=== PATIENT | female | born 1950 | race Caucasian/White ===

== ENCOUNTER → 2018-05-21 09:47 | Outpatient (CLI) | payer MEDICARE, OTHER, SELFPAY ==
[2018-05-21 12:05] LABS: Add Manual Diff / Slide Review NO; Basophils Percent Auto 1.4 % (0-2); Eosinophils Percent Auto 3.1 % (2-4); Hematocrit 41.9 % (36-46); Hemoglobin 13.9 g/dL (12.0-16.0); Lymphocytes Percent Auto 25.8 % (25-40); Mean Corpuscular HGB Conc 33.2 % (30-36); Mean Corpuscular Hemoglobin 30.1 PG (26-34); Mean Corpuscular Volume 90.7 fL (80-100); Monocytes Percent Auto 8.9 % (3-14); Neutrophils Absolute Auto 3000 /uL (3000-5900); Neutrophils Percent Auto 60.8 % (50-75); Platelet Count 275 X10^3/uL (150-400); Red Blood Cell Count 4.62 X10^6/uL (4.0-5.2); Red Cell Distribution Width 12.8 % (11.6-14.8)
[2018-05-21 12:49] LABS: Alanine Aminotransferase 24 IU/L (9-52); Albumin 4.8 g/dL (3.5-5.0); Albumin Globulin Ratio 1.4 (1.0-2.8); Alkaline Phosphatase 73 U/L (38-126); Aspartate Aminotransferase 29 IU/L (14-36); BUN Creatinine Ratio 15.7 (6-22); Bilirubin Total 0.6 mg/dL (0.2-1.3); Blood Urea Nitrogen 11 mg/dL (7-17); Carbon Dioxide 29 mmol/L (22-32); Chloride 100 mmol/L (98-107); Cholesterol 289 mg/dL (140-199); Estimated Glomerular Filt Rate > 60.0 mL/min (>60); Globulin 3.5 g/dL (1.7-4.1); Glucose 84 mg/dL (80-110); HDL Cholesterol 86 mg/dL (40-60); HEMOLYSIS < 15 (0-50); LDL Cholesterol Calculated 177 mg/dL (<100); Potassium 4.2 mmol/L (3.4-5.1); Sodium 141 mmol/L (137-145); Total Protein 8.3 g/dL (6.3-8.2); Triglycerides 130 mg/dL (35-150)
== END ==
PROVIDERS: PCP Family Medicine; Visit Provider Family Medicine
DX: I10 Essential (primary) hypertension (principal)
CPT/HCPCS: 36415; 80053; 80061; 84443; 85025

== ENCOUNTER → 2018-06-03 12:12 | Outpatient (CLI) | payer MEDICARE, OTHER, SELFPAY ==
--- NOTE | 2018-06-03 12:16 | DI.MG.S_ITS ---
BILATERAL DIGITAL SCREENING MAMMOGRAM 3D/2D WITH CAD: 06/03/2018 CLINICAL: Routine screening. Routine screening. Comparison is made to exams dated: 06/06/2016 mammogram - [facility], 11/22/2014 mammogram, and 11/08/2014 mammogram - [facility]. There are scattered fibroglandular elements in both breasts. Current study was also evaluated with a Computer Aided Detection (CAD) system. No significant masses, calcifications, or other findings are seen in either breast. There has been no significant interval change. IMPRESSION: NEGATIVE There is no mammographic evidence of malignancy. A 1 year screening mammogram is recommended. This exam was interpreted at Station ID: [id number]. NOTE: For mammograms, a report in lay terms will be sent to the patient. Approximately 15% of breast malignancies will not be visualized mammographically. In the management of a palpable breast mass, a negative mammogram must not discourage biopsy of a clinically suspicious lesion. Electronically Signed By: Gayatri blake/vonda:06/03/2018 15:18:35 letter sent: Normal Exam ACR BI-RADS Category 1: Negative 3341F
== END ==
PROVIDERS: Visit Provider Family Medicine
DX: Z12.31 Encounter for screening mammogram for malignant neoplasm of breast (principal)
CPT/HCPCS: 77063; 77067

== ENCOUNTER → 2018-10-15 12:00 | Outpatient (CLI) | payer MEDICARE, OTHER, SELFPAY | PROVIDERS: PCP Family Medicine; Visit Provider Physician Assistant | DX: N30.91 Cystitis, unspecified with hematuria (principal) | CPT/HCPCS: 87077; 87086; 87186 ==

== ENCOUNTER → 2018-11-11 12:18 | Outpatient (CLI) | payer MEDICARE, OTHER, SELFPAY ==
[2018-11-11 13:50] LABS: Appearance Urine UA CLEAR; Bilirubin Urine UA NEGATIVE (NEGATIVE); Color Urine UA YELLOW; Glucose Urine UA NEGATIVE (Normal); Ketones Urine UA NEGATIVE (NEGATIVE); Leukocyte Esterase Urine UA 1+ (NEGATIVE); Nitrite Urine UA NEGATIVE (Negative); Occult Blood Urine UA TRACE-INTACT (Negative); Protein Urine UA NEGATIVE (Negative); Specific Gravity Urine UA <=1.005 (1.000-1.035); Urobilinogen Urine UA 0.2 E.U./dL (0.2); pH Urine UA 5.5 (4.5-8.0)
[2018-11-11 14:08] LABS: Bacteria Urine Many (>30); RBC Urine 0-1/HPF (0-5/HPF); Squamous Epithelial Cell Urine 1-5 /HPF; WBC Urine 5-10/HPF (0-5/HPF)
[2018-11-11 14:09] LABS: Culture Indicated Urine Specimen Cultured
== END ==
PROVIDERS: PCP Family Medicine; Visit Provider Family Medicine
DX: R30.0 Dysuria (principal)
CPT/HCPCS: 81001; 87077; 87086; 87186

== ENCOUNTER → 2018-11-20 10:44 | Outpatient (CLI) | payer MEDICARE, OTHER, SELFPAY ==
[2018-11-20 10:48] LABS: Bacteria Urine None Seen
[2018-11-20 12:39] LABS: Appearance Urine UA CLEAR; Bilirubin Urine UA NEGATIVE (NEGATIVE); Color Urine UA YELLOW; Glucose Urine UA NEGATIVE (Normal); Ketones Urine UA NEGATIVE (NEGATIVE); Leukocyte Esterase Urine UA NEGATIVE (NEGATIVE); Nitrite Urine UA NEGATIVE (Negative); Occult Blood Urine UA TRACE-LYSED (Negative); Protein Urine UA NEGATIVE (Negative); Specific Gravity Urine UA 1.015 (1.000-1.035); Urobilinogen Urine UA 0.2 E.U./dL (0.2)
[2018-11-20 12:51] LABS: RBC Urine 0-1/HPF (0-5/HPF); Squamous Epithelial Cell Urine 1-5 /HPF; WBC Urine 0-1/HPF (0-5/HPF)
[2018-11-20 12:52] LABS: Culture Indicated Urine Cult Not Indicated
== END ==
PROVIDERS: PCP Family Medicine; Visit Provider Family Medicine
DX: R30.0 Dysuria (principal)
CPT/HCPCS: 81001

== ENCOUNTER → 2018-12-14 11:05 | Outpatient (CLI) | payer MEDICARE, OTHER, SELFPAY | PROVIDERS: PCP Family Medicine; Visit Provider Physician Assistant | DX: N39.0 Urinary tract infection, site not specified (principal) | CPT/HCPCS: 87086 ==

== ENCOUNTER → 2019-05-19 08:48 | Outpatient (CLI) | payer MEDICARE, OTHER, SELFPAY ==
[2019-05-19 10:45] LABS: Cholesterol 262 mg/dL (140-199); Glucose 82 mg/dL (80-110); HDL Cholesterol 77 mg/dL (40-60); LDL Cholesterol Calculated 154 mg/dL (<100); Triglycerides 153 mg/dL (35-150)
== END ==
PROVIDERS: PCP Family Medicine; Visit Provider Family Medicine
DX: E78.5 Hyperlipidemia, unspecified (principal); R89.9 Unspecified abnormal finding in specimens from other organs, systems and tissues; Z13.1 Encounter for screening for diabetes mellitus
CPT/HCPCS: 36415; 80061; 82947

== ENCOUNTER → 2019-09-11 08:52 | Outpatient (CLI) | payer MEDICARE, OTHER, SELFPAY | PROVIDERS: PCP Family Medicine; Visit Provider Obstetrics & Gynecology | DX: N39.0 Urinary tract infection, site not specified (principal) | CPT/HCPCS: 87086 ==

== ENCOUNTER → 2019-09-18 10:32 | Outpatient (CLI) | payer MEDICARE, OTHER, SELFPAY ==
[2019-09-18 12:51] LABS: Appearance Urine UA CLEAR; Bilirubin Urine UA NEGATIVE (NEGATIVE); Color Urine UA YELLOW; Glucose Urine UA NEGATIVE (Negative); Ketones Urine UA NEGATIVE (NEGATIVE); Leukocyte Esterase Urine UA 2+ (NEGATIVE); Nitrite Urine UA NEGATIVE (Negative); Occult Blood Urine UA TRACE-LYSED (Negative); Protein Urine UA NEGATIVE (Negative); Specific Gravity Urine UA <=1.005 (1.000-1.035); Urobilinogen Urine UA 0.2 E.U./dL (0.2)
[2019-09-18 12:53] LABS: pH Urine UA 6.5 (4.5-8.0)
[2019-09-18 13:01] LABS: Bacteria Urine Few (2-10); Culture Indicated Urine Specimen Cultured; RBC Urine 0-1/HPF (0-5/HPF); Squamous Epithelial Cell Urine 0-1 /HPF (0-5/HPF); WBC Urine 5-10/HPF (0-5/HPF)
== END ==
PROVIDERS: PCP Family Medicine; Visit Provider Obstetrics & Gynecology
DX: R30.0 Dysuria (principal)
CPT/HCPCS: 81001; 87077; 87086; 87186

== ENCOUNTER 2019-10-05 11:38 | Day surgery (SDC) | payer MEDICARE, OTHER, SELFPAY ==
[2019-09-29 08:10] VITALS: BMI 25.2
[2019-10-05] VITALS (16 sets, daily range): BP systolic 117–175; BP diastolic 66–86; PULSE 54–77; RESP 10–16; TEMP 36.4–36.9; O2SAT 94–100; BMI 24.4
[2019-10-05] MEDS: LACTATED RINGERS 1,000 ML 100 ML IV (13:01)
--- NOTE | 2019-10-05 13:04 | PM.PREOP ---
Pre-operative Note Interval Note History & Physical reviewed/Exam performed by Physician: Yes Changes to H&P: No
[2019-10-05 13:21] LABS: Add Manual Diff / Slide Review NO; Basophils Absolute Auto 100 /uL (0-100); Basophils Percent Auto 1.1 % (0-2); Eosinophils Absolute Auto 0 /uL (0-450); Eosinophils Percent Auto 0.9 % (2-4); Hematocrit 39.2 % (36-46); Hemoglobin 13.3 g/dL (12.0-16.0); Lymphocytes Absolute Auto 1200 /uL (1100-4500); Lymphocytes Percent Auto 22.2 % (25-40); Mean Corpuscular HGB Conc 34.1 % (30-36); Mean Corpuscular Hemoglobin 30.7 PG (26-34); Mean Corpuscular Volume 90.2 fL (80-100); Monocytes Absolute Auto 400 /uL (0-900); Monocytes Percent Auto 7.8 % (3-14); Neutrophils Absolute Auto 3700 /uL (1500-7000); Platelet Count 202 X10^3/uL (150-400); Red Blood Cell Count 4.34 X10^6/uL (4.0-5.2); Red Cell Distribution Width 12.9 % (11.6-14.8); White Blood Cell Count 5.4 X10^3/uL (4.5-11.0)
[2019-10-05] MEDS: CEFAZOLIN 2 GM/100 ML FROZ.PIGGY IV (14:20)
--- NOTE | 2019-10-05 14:41 | SUR.OPER ---
Lithotomy on padded OR bed, head on pillow, arms secured on padded arm boards at <90 degrees abduction. Legs secured in padded yellow fins stirrups.
[2019-10-05] MEDS: BUPIVACAINE 0.5% W/ EPI (PF) VIAL 30 ML INJ (14:48)
--- NOTE | 2019-10-05 15:24 | P.OP_ITS ---
Operative Date/Time/Diagnoses Date of procedure: 10/05/19 Time of procedure: 14:24 Pre-op diagnosis: Pelvic Organ Prolapse Post-op diagnosis: same Procedure & Clinicians Procedure: Procedures Operation Date: 10/05/19 14:45 Actual Procedures Side Surgeon p *OPB* Colporrhaphy Anterior Repair Jaquelin Hutchinson MD Indications: Pelvic organ prolapse Surgeon: Jaquelin Hutchinson Evaluation Analyst: Jasmin Valero Anesthesia Type: General Operative Notes Findings: Moderate cystocele, moderate apical descent. IVF: 1000ccs crystalloid UOP: NA EBL: Minimal Closure Type: primary Specimen(s): none Applied: catheter Estimated blood loss (mL): 5 Procedure in detail: After proper consent was obtained, the patient was taken to the operating room where general anesthesia was placed. She was placed in the dorsal lithotomy position and prepped and draped in the normal sterile fashion. A straight catheter was used to drain the bladder and removed, and 2 Allis clamps were used on the vaginal mucosa overlying the prolapse bladder to define the boundaries of the fascial defect. 10 cc of 0.5% Marcaine with epi were infiltrated into the vaginal mucosa to aid in hydrodilation of the vaginal wall from the bladder fascia. An incision was made between the Allis clamps of approximately 4 cm, and the vaginal mucosa dissected from the bladder fascia further using Metzenbaum scissors and blunt dissection. The defect in the fascia was visualized, and interrupted sutures of 2-0 Vicryl were used to reapproximate the fascia where necessary. Once good support of the bladder was obtained, the vaginal mucosa was reapproximated with 2-0 Vicryl in a running, locked fashion. Good hemostasis was noted. Mild to moderate apical descent remained, but further apical support now been discussed with the patient and was deferred to avoid causing dyspareunia and voiding dysfunction after healing. A Dobbins catheter was placed in the urethra, and vaginal packing placed in the vagina. The patient was removed from the dorsal lithotomy position and taken to the recovery room in stable condition. There were no products for pathology. Complications: none Post-operative Condition: stable Disposition: Acute Care Plan for aftercare: Routine postoperative care. Patient will have Dobbins catheter and vaginal packing in situ until tomorrow morning. Patient will use Ultram and Toradol for pain relief as previously discussed. Advance diet as tolerated, ambulation encouraged as tolerated.
[2019-10-05] MEDS: LACTATED RINGERS 1,000 ML 125 ML IV ×2 (16:50→23:27)
--- NOTE | 2019-10-05 17:24 | PC.NURSE ---
Addendum entered by Shanice Duran R.N. 10/05/19 22:37: Mahogany still denies pain, RENEWALS SPECIALIST assisted her to dangle legs at side of bed, pad underneath her changed. Hui-pad CDI, no bleeding observed. IS teaching done, she was able to get IS to 1800. Encouraged use qhour. VS are stable, RA oxygen high 90's. Pérez with 2150 ml output total last 8 hours, urine dilute yellow, drinking lots of H2o. Instructed to call nurse if any needs/concerns tonight. Original Note: Admit note: Mahogany brought from PACU via hospital bed, Ox3 and to situation. VS stable, last BP hypertensive, patient actively moving & talking while RENEWALS SPECIALIST taking her BP, I will recheck. She denies any pain. She is tolerating clear liquids, IV LR infusing at 125 ml/hour as ordered. RENEWALS SPECIALIST called kitchen to ask them to bring regular dinner which was ordered by the surgeon. Pérez patent with clear yellow output, vag packing. Per PACKAGE LIFT OPERATOR the Surgeon ordered to keep pérez & packing in place until she comes to DC these in the morning. Admission paperwork complete, spouse Eleuterio at bedside. Pt oriented to room, call button & instructed to call staff for any needs. Fall precautions in place.
--- NOTE | 2019-10-06 00:02 | PC.NURSE ---
Addendum entered by Ayala Roberson R.N. 10/06/19 03:16: Awake and requesting to go for walk. Ambulated around [facility] nurses station and back to room; tolerated without dizziness or lightheadedness. Denies pain. Original Note: Patient is alert and oriented. Breath sounds CTA with RA sat of 96%. HRR. Denies nausea. BT present and is passing flatus. Indwelling catheter is patent and urine is pale, light, yellow; MD plans to remove catheter in a.m. Is able to turn self in bed. Gait not assessed as has not yet been out of bed. No drainage noted on peripad. Wearing bilateral calf SCD's. Denies pain. Fall risk score is low.
[2019-10-06 05:49] LABS: Add Manual Diff / Slide Review NO; Basophils Absolute Auto 0 /uL (0-100); Basophils Percent Auto 0.4 % (0-2); Eosinophils Absolute Auto 0 /uL (0-450); Eosinophils Percent Auto 0.1 % (2-4); Hematocrit 33.9 % (36-46); Hemoglobin 11.7 g/dL (12.0-16.0); Lymphocytes Absolute Auto 1000 /uL (1100-4500); Lymphocytes Percent Auto 12.9 % (25-40); Mean Corpuscular HGB Conc 34.4 % (30-36); Mean Corpuscular Hemoglobin 30.9 PG (26-34); Mean Corpuscular Volume 89.8 fL (80-100); Monocytes Absolute Auto 600 /uL (0-900); Monocytes Percent Auto 7.9 % (3-14); Neutrophils Absolute Auto 6300 /uL (1500-7000); Neutrophils Percent Auto 78.7 % (50-75); Platelet Count 172 X10^3/uL (150-400); Red Blood Cell Count 3.77 X10^6/uL (4.0-5.2); Red Cell Distribution Width 12.7 % (11.6-14.8)
[2019-10-06 05:52] LABS: BUN Creatinine Ratio 15.7 (6-22); Blood Urea Nitrogen 11 mg/dL (7-17); Calcium 8.9 mg/dL (8.4-10.2); Carbon Dioxide 28 mmol/L (22-32); Chloride 102 mmol/L (98-107); Estimated Glomerular Filt Rate > 60.0 mL/min (>60); Glucose 114 mg/dL (80-110); HEMOLYSIS < 15 (0-50); Potassium 4.3 mmol/L (3.4-5.1); Sodium 134 mmol/L (137-145)
[2019-10-06 06:36] VITALS: BP 107/57; PULSE 48; RESP 15; TEMP 36.5; O2SAT 97
[2019-10-06 07:53] VITALS: BP 109/59; PULSE 48; RESP 16; TEMP 36.3; O2SAT 98
--- NOTE | 2019-10-06 08:02 | PM.PNPO.1 ---
Subjective Subjective Date Patient Seen: 10/06/19 Time Patient Seen: 07:48 Interval history: Patient reports feeling well this morning, denies pain, fevers, chills, shortness of breath, nausea, or any other complaints. Patient has been ambulating, has tolerated p.o. Exam Vital Signs (past 8 hours): - 10/06/19 06:36 10/06/19 07:53 Temperature 97.7 F 97.4 F L Pulse Rate 48 L 48 L Respiratory Rate 15 16 Blood Pressure 107/57 L 109/59 L Pulse Oximetry 97 98 Oxygen Delivery Method Room Air Oxygen Flow Rate 0 Resp Effort & Inspection: normal respiratory effort Auscultation: clear to auscultation bilaterally Cardio Rate: regular rate Rhythm: regular rhythm (Pulse rate audibly faster than 48, as recorded) GI Palpation: soft and No tender External Female Exam: external appearance normal Other: Vaginal packing removed, only mildly saturated. Patient tolerated removal well. Patient tolerated removal of Dobbins catheter well. Catheter bag approximately half full. Objective Labs Result Diagrams: 10/06/19 05:30 10/06/19 05:30 Labs: Laboratory Results - last 24 hr 10/05/19 10/05/19 10/06/19 13:05 13:05 05:30 WBC 5.4 8.0 RBC 4.34 3.77 L Hgb 13.3 11.7 L Hct 39.2 33.9 L MCV 90.2 89.8 MCH 30.7 30.9 MCHC 34.1 34.4 RDW 12.9 12.7 Plt Count 202 172 Neut % (Auto) 68.0 78.7 H Lymph % (Auto) 22.2 L 12.9 L Mcculloch % (Auto) 7.8 7.9 Eos % (Auto) 0.9 L 0.1 L Baso % (Auto) 1.1 0.4 Neut # (Auto) 3700 6300 Lymph # (Auto) 1200 1000 L Mcculloch # (Auto) 400 600 Eos # (Auto) 0 0 Baso # (Auto) 100 0 Sodium Potassium Chloride Carbon Dioxide BUN Creatinine Estimated GFR BUN/Creatinine Ratio Glucose Calcium Blood Type A Positive Antibody Screen Negative 10/06/19 05:30 WBC RBC Hgb Hct MCV MCH MCHC RDW Plt Count Neut % (Auto) Lymph % (Auto) Mcculloch % (Auto) Eos % (Auto) Baso % (Auto) Neut # (Auto) Lymph # (Auto) Mcculloch # (Auto) Eos # (Auto) Baso # (Auto) Sodium 134 L Potassium 4.3 Chloride 102 Carbon Dioxide 28 BUN 11 Creatinine 0.70 Estimated GFR > 60.0 BUN/Creatinine Ratio 15.7 Glucose 114 H Calcium 8.9 Blood Type Antibody Screen Assessment & Plan Post-op Postoperative Procedures: Procedures Operation Date: 10/05/19 14:45 Actual Procedures Side Surgeon p *OPB* Colporrhaphy Anterior Repair Jaquelin Hutchinson MD Postoperative day: 1 Postoperative status: doing well Postoperative status narrative: This patient is postoperative day 1 status post anterior repair for cystocele. Patient is recovering externally, and will be for discharge today after a voiding trial this a.m.. Patient is otherwise meeting postoperative goals. We discussed precautions for return, plan for follow-up in 1-2 weeks in clinic, pain medication, and expected recovery course. Patient vocalized understanding. Postoperative plan: routine post-op care Time Spent With Patient Time with patient: less than 15 minutes Quality VTE Deep Vein Thrombosis/Pulmonary Embolism Present on Admission: No
--- NOTE | 2019-10-06 09:06 | PC.NURSE ---
Addendum entered by Ro Doty R.N. 10/06/19 12:02: Discharge home: IV dc'd intact. Patient voided 300 ml clear yellow urine prior to leaving and denied any post-void urgency. Reviewed all d/c instructions with patient. No new scripts, no change to home meds. Patient verbalized understanding of instructions and stated no further questions. All personal belongings sent with patient at discharge. Wheeled out to private vehicle accompanied by this chief writer. Addendum entered by Ro Doty R.N. 10/06/19 10:03: Message left at the office for Dr Fellow re: void and PVR results, awaiting call back and/or remote entry of d/c orders. Original Note: Shift summary: Awake and alert, oriented X3. Denies pain. Has voided twice since her Dobbins was removed and states she feels like she emptied her bladder. PVR bladder scan showed 9 ml at the most. No vaginal bleeding noted or reported. Urine is yellow, with the very slightest pink tinge. Tolerating PO's well. Will alert MD about PVR amount, anticipate d/c orders based on conversation w/Dr Fellow earlier. Patient in bed, states no needs now. Call light within reach.
--- NOTE | 2019-10-06 11:40 | CM.DANOTE ---
DCP/Assessment: Reviewed chart. Patient admitted to [facility] for genital prolapse repair performed on 10-05-[address] Hutchinson. PCP is Dr. Solares. Primary payor is 1)Medicare 2)[employer]. Met with patient explained CM/SW role. Patient reports that she resides with spouse/Timmy in [place] Patient reports that she is completely I in all ADL's. Patient has has surgery on bilateral knees a few years ago. No identified d/c planning needs at t his time. P: Home today. BERTHA Veronica
== END 2019-10-06 12:05 | disposition home or self-care (01) ==
LOC: OR 11:47 → AC 10-06 07:01
PROVIDERS: PCP Family Medicine; Visit Provider Obstetrics & Gynecology
PROC: (CPT 57240; principal; 2019-10-05 14:45)
DX: N81.10 Cystocele, unspecified (principal); N81.9 Female genital prolapse, unspecified
CPT/HCPCS: 57240; 36415; 80048; 85025; 86850; 86900; 86901; 94762; J0690; J1100; J1885; J2405; J2704; J3010

== ENCOUNTER → 2019-11-30 12:54 | Outpatient (CLI) | payer MEDICARE, OTHER, SELFPAY ==
[2019-10-05 17:06] VITALS: BMI 24.4
[2019-11-30 13:51] LABS: Appearance Urine UA CLOUDY; Bilirubin Urine UA NEGATIVE (NEGATIVE); Color Urine UA YELLOW; Glucose Urine UA NEGATIVE (Negative); Ketones Urine UA NEGATIVE (NEGATIVE); Leukocyte Esterase Urine UA 2+ (NEGATIVE); Nitrite Urine UA NEGATIVE (Negative); Occult Blood Urine UA 1+ (Negative); Protein Urine UA NEGATIVE (Negative); Urobilinogen Urine UA 0.2 E.U./dL (0.2)
[2019-11-30 14:00] LABS: pH Urine UA 5.5 (4.5-8.0)
[2019-11-30 14:02] LABS: Bacteria Urine Moderate (10-30); Culture Indicated Urine Specimen Cultured; RBC Urine 5-10/HPF (0-5/HPF); WBC Urine >100/HPF (0-5/HPF)
== END ==
PROVIDERS: PCP Family Medicine; Visit Provider Obstetrics & Gynecology
DX: R30.9 Painful micturition, unspecified (principal); R39.89 Other symptoms and signs involving the genitourinary system
CPT/HCPCS: 81001; 87077; 87086; 87186

== ENCOUNTER 2020-04-24 09:05 | Emergency (ER) | payer MEDICARE, OTHER, SELFPAY ==
[2019-10-05 17:06] VITALS: BMI 24.4
[2020-04-24 09:08] VITALS: BP 209/91; PULSE 81; RESP 16; TEMP 36.5; O2SAT 99; BMI 25.0
--- NOTE | 2020-04-24 09:14 | ED.FEMALEGU ---
HPI - Female Genitourinary General Chief complaint: Urogenital-Female Stated complaint: bladder infection Time Seen by Provider: 04/24/20 09:07 Source: patient Mode of arrival: Ambulatory Limitations: no limitations History of Present Illness HPI Narrative: 69-year-old female nonsmoker with history of hypertension, hyperlipidemia and frequent UTIs with prior bladder surgery presents with a chief complaint of urinary urgency and a foul odor this morning. She denies any hematuria or dysuria. She denies any systemic symptoms such as fever, chills nor nausea, back pain or other. She is otherwise well and free of complaint. She is concerned that she has another urinary tract infection, as she has had many. She plans to travel to [place] and is afraid of doing so untreated. Patient denies any vaginal bleeding or discharge MD Complaint: UTI Onset (ago): hour(s) Severity: mild Exacerbating factors: urination Urinary symptoms: Foul Smelling Urine Patient : No Related Data Home Medications Medication Instructions Recorded Confirmed multivitamin 1 tab PO DAILY 05/21/18 11/20/19 omeprazole 20 mg capsule,delayed 20 mg PO BID cap 05/21/18 11/20/19 release Previous Rx's Medication Instructions Recorded pravastatin 10 mg tablet 10 mg PO DAILY #90 tab 12/02/19 cephalexin [Keflex] 500 mg PO QID 7 Days #28 cap 04/24/20 Allergies Allergy/AdvReac Type Severity Reaction Status Date / Time Calcium Channel Blocking Allergy Severe left side Verified 04/24/20 09:13 Agent Dilt of face, [CALCIUM CHANNEL BLOCKING removes AGENT DILT] calcium out of bones midazolam [From VERSED] Allergy Mild terminal makeup operator Verified 04/24/20 09:13 memory loss codeine [CODEINE] AdvReac Severe HALLUCINATI Verified 04/24/20 09:13 ONS diphenhydramine AdvReac Severe I'M Verified 04/24/20 09:13 [From BENADRYL] KNOCKED OUT FOR DAYS epinephrine [EPINEPHRINE] AdvReac Severe TREMORS, Verified 04/24/20 09:13 TACHYCARDIA Review of Systems Constitutional Constitutional: Denies chills, Denies fatigue, Denies fever(s), Denies frequent falls, Denies lethargy and Denies weakness Eyes Eyes: Denies change in vision, Denies eye discharge, Denies irritation and Denies loss of vision ENT Ears, Nose, Mouth, and Throat: Denies change in voice, Denies dizziness, Denies neck pain, Denies sore throat and Denies throat swelling Cardiovascular Cardiovascular: Denies chest pain, Denies irregular heart rhythm, Denies lightheadedness, Denies palpitations, Denies dyspnea, Denies dyspnea on exertion and Denies orthopnea Respiratory Respiratory: Denies cough, Denies dyspnea, Denies dyspnea on exertion and Denies wheezing Gastrointestinal Gastrointestinal: Denies abdominal pain, Denies change in bowel habits, Denies diarrhea, Denies nausea and Denies vomiting Genitourinary Genitourinary: Denies hematuria, Denies flank pain, Denies urinary incontinence and Reports urinary urgency Musculoskeletal Musculoskeletal: Denies back pain, Denies muscle weakness, Denies neck pain, Denies numbness and Denies tingling Integumentary/Breasts Skin/Breast: Denies pruritus, Denies erythema, Denies rash and Denies wounds Neurologic Neurologic: Denies behavioral changes, Denies confusion, Denies dizziness, Denies frequent falls, Denies loss of vision, Denies numbness, Denies tingling and Denies weakness Psychiatric Psychiatric: Denies anxiety, Denies behavioral changes, Denies confusion, Denies depression, Denies homicidal ideation and Denies suicidal ideation Endocrine Endocrine: Denies fatigue, Denies flushing and Denies palpitations Hematologic/Lymphatic Hematologic/Lymphatic: Denies easy bruising Allergic/Immunologic Allergic/Immunologic: Denies urticaria, Denies throat swelling and Denies wheezing Patient History Medical History Chicken pox (Resolved) Congenital cataract (Resolved) Cystocele (Acute) Osteoarthritis (Chronic) Osteopenia (Chronic 2014) Surgical History Anesthesia (Resolved) History of bilateral tubal ligation (Resolved) History of cataract removal with insertion of prosthetic lens (Resolved 2016) History of gynecologic surgery (Acute ~10/05/19) History of knee replacement (Resolved 11/22/15) History of knee replacement (Resolved 10/02/16) History of tonsillectomy (Resolved ~1960) Status post appendectomy (Resolved ~1964) Family History Father Heart disease High cholesterol Grandmother Age: 70 Heart disease Diabetes mellitus Brother Mental health problem Suicide Brother Diabetes mellitus Mother Pancreatic cancer Substance Use Type: does not use Exam Narrative Exam Narrative: GENERAL: [69] year old patient appears stated age. Well-nourished, well-developed patient, in mild distress. HEAD: Atraumatic. Normocephalic. EYES: Pupils equal round and reactive. Extraocular motions intact. No scleral icterus. No injection or drainage. ENT: Nose without bleeding, purulent drainage. Throat without erythema, tonsillar hypertrophy or exudate. Airway patent. NECK: Trachea midline. Non tender CARDIOVASCULAR: Regular rate and rhythm without murmurs, gallops, or rubs. RESPIRATORY: Clear to auscultation. Breath sounds equal bilaterally. No wheezes, rales, or rhonchi. GASTROINTESTINAL: Abdomen soft, non-tender, nondistended. EXTREMITIES: No edema or joint tenderness. BACK: Nontender without deformity or crepitance. No flank tenderness. NEURO: AOx3. SKIN: No rash or erythema of visible areas Initial Vital Signs Initial Vital Signs: Vital Signs Temperature 97.7 F 04/24/20 09:08 Pulse Rate 81 04/24/20 09:08 Respiratory Rate 16 04/24/20 09:08 Blood Pressure 209/91 H 04/24/20 09:08 Pulse Oximetry 99 04/24/20 09:08 Course Vital Signs Vital signs: Vital Signs - 8 hr 04/24/20 09:08 04/24/20 09:26 Temperature 97.7 F Pulse Rate 81 Respiratory Rate 16 Blood Pressure 209/91 H Blood Pressure [Left Arm] 199/92 H Pulse Oximetry 99 MDM - Female Genitourinary Lab Data Labs: Urine Dip Bedside Urine Glucose Negative Bedside Urine Bilirubin - Negative Bedside Urine Ketone - Negative Urine Specific [place] 1.010 Bedside Urine Occult Blood - Negative Bedside Urine pH 7.0 Bedside Urine Protein - Negative Bedside Urine Urobilinogen - Negative Bedside Urine Nitrite - Negative Bedside Urine Leukocytes - Negative Esterase MDM Narrative Medical decision making narrative: Patient's urine POC is unremarkable but her symptoms have only been present this morning. We discussed the potential that she is more sensitive than our test. We discussed other options but given the lack of systemic findings, vaginal bleeding or discharge it seems most likely that she has an early UTI. We discussed hydrating over the course of the day and of her symptoms improve she should not take the antibiotics. I did advise her to get the prescription from the pharmacy and take it with her on her trip and a symptoms do not improve and certainly if they worsen she should begin taking them. She has been given return precautions and had her questions answered to her apparent satisfaction. Discharge Plan Departure Patient Disposition: Home Clinical Impression: Acute UTI Discharge Date/Time: 04/24/20 09:32 Instructions: DI for Urinary Tract Infection (UTI) Activity Restrictions/Additional Instructions: *You have been diagnosed with [acute urinary tract infection] *What to do: *Take medications as directed: electronically transmitted to [facility] *Follow up with your primary care provider in 2-3 days, call for an appointment. Let them know you were seen in the Emergency Department and that we ask that you be seen in follow up *Return to ER if you should have any new, worsening or concerning symptoms, such as [flank pain, vomiting, fever with shaking chills.] Prescriptions: New cephalexin [Keflex] 500 mg capsule 500 mg PO QID 7 Days Qty: 28 RF: 0 No Action pravastatin 10 mg tablet 10 mg PO DAILY Qty: 90 RF: 2 omeprazole 20 mg capsule,delayed release(DR/EC) 20 mg PO BID RF: 0 multivitamin tablet 1 tab PO DAILY RF: 0 Referrals: Olya Solares MD [Primary Care Provider] -
[2020-04-24 09:26] VITALS: BP 199/92
--- NOTE | 2020-04-24 09:26 | PC.NURSE ---
pt states, its a white coat syndrome, and she always checks her bp at home, denies headache,visual changes, chest pain at this time. will follow up with primary md.
== END 2020-04-24 09:32 | disposition home or self-care (01) ==
PROVIDERS: Emergency Provider Emergency Medicine; PCP Family Medicine
DX: N39.0 Urinary tract infection, site not specified (principal); I10 Essential (primary) hypertension; E78.5 Hyperlipidemia, unspecified
CPT/HCPCS: 81003; 99282

== ENCOUNTER → 2020-05-30 10:07 | Outpatient (CLI) | payer MEDICARE, OTHER, SELFPAY ==
[2019-10-05 17:06] VITALS: BMI 24.4
[2020-05-30 11:54] LABS: Creatinine Urine Random 154.2 mg/dL
[2020-05-30 12:00] LABS: Microalbumi Creatinin Ratio Ur 9.7 ug/mg CR (<30); Microalbumin Urine Random 1.5 mg/dL (0-1.6)
[2020-05-30 12:27] LABS: Alanine Aminotransferase 16 IU/L (<35); Albumin 4.8 g/dL (3.5-5.0); Albumin Globulin Ratio 1.7 (1.0-2.8); Alkaline Phosphatase 74 U/L (38-126); Aspartate Aminotransferase 33 IU/L (14-36); Bilirubin Total 0.7 mg/dL (0.2-1.3); Blood Urea Nitrogen 12 mg/dL (7-17); Calcium 10.3 mg/dL (8.4-10.2); Carbon Dioxide 29 mmol/L (22-32); Chloride 102 mmol/L (98-107); Cholesterol 279 mg/dL (140-199); Estimated Glomerular Filt Rate > 60.0 mL/min (>60); Globulin 2.8 g/dL (1.7-4.1); Glucose 89 mg/dL (80-110); HDL Cholesterol 79 mg/dL (40-60); HEMOLYSIS < 15 (0-50); LDL Cholesterol Calculated 177 mg/dL (<100); Potassium 4.6 mmol/L (3.4-5.1); Sodium 137 mmol/L (137-145); Total Protein 7.6 g/dL (6.3-8.2); Triglycerides 117 mg/dL (35-150)
== END ==
PROVIDERS: PCP Family Medicine; Referring Provider Family Medicine; Visit Provider Family Medicine
DX: I10 Essential (primary) hypertension (principal)
CPT/HCPCS: 36415; 80053; 80061; 82043; 82570

== ENCOUNTER → 2020-07-06 09:42 | Outpatient (CLI) | payer MEDICARE, OTHER, SELFPAY ==
[2019-10-05 17:06] VITALS: BMI 24.4
--- NOTE | 2020-07-06 | DI.MG.S_ITS ---
BILATERAL DIGITAL SCREENING MAMMOGRAM 3D/2D WITH CAD: 07/06/2020 CLINICAL: Routine screening. Comparison is made to exams dated: 06/03/2018 mammogram, 06/06/2016 mammogram - [facility], 11/22/2014 mammogram, and 11/08/2014 mammogram - [facility]. There are scattered fibroglandular elements in both breasts. Current study was also evaluated with a Computer Aided Detection (CAD) system. No significant masses, calcifications, or other findings are seen in either breast. There has been no significant interval change. IMPRESSION: NEGATIVE There is no mammographic evidence of malignancy. A 1 year screening mammogram is recommended. This exam was interpreted at Station ID: [id number]. NOTE: For mammograms, a report in lay terms will be sent to the patient. Approximately 15% of breast malignancies will not be visualized mammographically. In the management of a palpable breast mass, a negative mammogram must not discourage biopsy of a clinically suspicious lesion. Electronically Signed By: Jacob woods/vonda:07/06/2020 13:24:51 letter sent: Normal Exam ACR BI-RADS Category 1: Negative 3341F
== END ==
PROVIDERS: PCP Family Medicine; Referring Provider Family Medicine; Visit Provider Family Medicine
DX: Z12.31 Encounter for screening mammogram for malignant neoplasm of breast (principal)
CPT/HCPCS: 77063; 77067

== ENCOUNTER → 2020-09-30 09:15 | Outpatient (CLI) | payer MEDICARE, OTHER, SELFPAY ==
[2019-10-05 17:06] VITALS: BMI 24.4
[2020-09-30 10:37] LABS: Cholesterol 235 mg/dL (140-199); HDL Cholesterol 66 mg/dL (40-60); LDL Cholesterol Calculated 148 mg/dL (<100); Triglycerides 106 mg/dL (35-150)
== END ==
PROVIDERS: PCP Family Medicine; Referring Provider Family Medicine; Visit Provider Family Medicine
DX: E78.5 Hyperlipidemia, unspecified (principal)
CPT/HCPCS: 36415; 80061

== ENCOUNTER → 2021-02-01 09:21 | Outpatient (CLI) | payer MEDICARE, OTHER, SELFPAY ==
[2019-10-05 17:06] VITALS: BMI 24.4
[2021-02-01 10:35] LABS: Appearance Urine UA SL CLOUDY; Bilirubin Urine UA NEGATIVE (NEGATIVE); Color Urine UA YELLOW; Glucose Urine UA NEGATIVE (Negative); Ketones Urine UA NEGATIVE (NEGATIVE); Leukocyte Esterase Urine UA 3+ (NEGATIVE); Nitrite Urine UA NEGATIVE (Negative); Occult Blood Urine UA 3+ (Negative); Protein Urine UA NEGATIVE (Negative); Urobilinogen Urine UA 0.2 E.U./dL (0.2)
[2021-02-01 10:37] LABS: pH Urine UA 6.5 (4.5-8.0)
[2021-02-01 10:40] LABS: RBC Urine 5-10/HPF (0-5/HPF); WBC Urine 10-30/HPF (0-5/HPF)
[2021-02-01 10:41] LABS: Bacteria Urine Moderate (10-30); Culture Indicated Urine Specimen Cultured
== END ==
PROVIDERS: PCP Family Medicine; Referring Provider Obstetrics & Gynecology; Visit Provider Obstetrics & Gynecology
DX: R39.9 Unspecified symptoms and signs involving the genitourinary system (principal)
CPT/HCPCS: 81001; 87077; 87086; 87186

== ENCOUNTER → 2021-02-03 10:10 | Outpatient (CLI) | payer MEDICARE, OTHER, SELFPAY ==
[2019-10-05 17:06] VITALS: BMI 24.4
[2021-02-03] MEDS: COVID-19 VACC, Ad26(JANSSEN)/PF 0.5 ML IM (10:19)
== END ==
PROVIDERS: PCP Family Medicine; Visit Provider Internal Medicine
DX: Z23 Encounter for immunization (principal)
CPT/HCPCS: 0031A; 91303

== ENCOUNTER → 2021-02-10 14:03 | Outpatient (CLI) | payer MEDICARE, OTHER, SELFPAY ==
[2019-10-05 17:06] VITALS: BMI 24.4
[2021-02-11 11:52] LABS: Candida species Negative (Negative); Gardnerella vaginalis Negative (Negative); Trichomoas vaginalis Negative (Negative)
== END ==
PROVIDERS: PCP Family Medicine; Visit Provider Obstetrics & Gynecology
DX: R30.0 Dysuria (principal); R31.9 Hematuria, unspecified; R39.9 Unspecified symptoms and signs involving the genitourinary system; N89.8 Other specified noninflammatory disorders of vagina
CPT/HCPCS: 87077; 87086; 87186; 87480; 87510; 87660

== ENCOUNTER → 2021-04-03 09:18 | Outpatient (CLI) | payer MEDICARE, OTHER, SELFPAY ==
[2019-10-05 17:06] VITALS: BMI 24.4
[2021-04-03 11:10] LABS: Cholesterol 220 mg/dL (140-199); HDL Cholesterol 74 mg/dL (40-60); LDL Cholesterol Calculated 117 mg/dL (<100); Triglycerides 146 mg/dL (35-150)
== END ==
PROVIDERS: PCP Family Medicine; Referring Provider Family Medicine; Visit Provider Family Medicine
DX: E78.5 Hyperlipidemia, unspecified (principal)
CPT/HCPCS: 36415; 80061

== ENCOUNTER → 2021-05-25 13:58 | Outpatient (CLI) | payer MEDICARE, OTHER, SELFPAY ==
[2021-05-25 13:42] VITALS: BMI 24.4
[2021-05-25 14:44] LABS: Cholesterol 249 mg/dL (140-199); HDL Cholesterol 72 mg/dL (40-60); LDL Cholesterol Calculated 148 mg/dL (<100); Triglycerides 145 mg/dL (35-150)
[2021-05-25 14:46] LABS: BUN Creatinine Ratio 14.9 (6-22); Blood Urea Nitrogen 10 mg/dL (7-17); Calcium 10.3 mg/dL (8.4-10.2); Carbon Dioxide 31 mmol/L (22-32); Chloride 103 mmol/L (98-107); Estimated Glomerular Filt Rate > 60.0 mL/min (>60); Glucose 91 mg/dL (80-110); HEMOLYSIS < 15 (0-50); Potassium 4.3 mmol/L (3.4-5.1); Sodium 138 mmol/L (137-145)
== END ==
PROVIDERS: PCP Family Medicine; Referring Provider Urology; Visit Provider Urology
DX: N39.0 Urinary tract infection, site not specified (principal); N81.11 Cystocele, midline; E78.5 Hyperlipidemia, unspecified
CPT/HCPCS: 36415; 51798; 80048; 80061; 81002; 99215

== ENCOUNTER → 2021-05-31 12:03 | Outpatient (CLI) | payer MEDICARE, OTHER, SELFPAY ==
[2021-05-25 13:42] VITALS: BMI 24.4
--- NOTE | 2021-05-31 12:05 | DI.CT.S_ITS ---
PROCEDURE: CT ABDOMEN PELVIS WO/W CON INDICATIONS: Recurring urinary tract infections TECHNIQUE: Optional 5 mm thick noncontrast images acquired from the diaphragm to the symphysis pubis. After the administration of intravenous contrast, 5 mm thick images acquired from the diaphragm to the symphysis pubis after a 10-minute delay. 2 mm thick coronal and sagittal reformats were then performed of the kidneys and ureters. For radiation dose reduction, the following was used: automated exposure control, adjustment of mA and/or kV according to patient size. COMPARISON: None. FINDINGS: Image quality: Excellent. Lung bases: Lung bases are clear. Heart size is normal. Urinary system: Both kidneys are normal in size, without hydronephrosis or nephrolithiasis on pre-contrast images. Subcentimeter right peripelvic cyst. No perinephric fat stranding. There is normal bilateral renal enhancement. Renal calyces appear normal in morphology when filled with contrast. Opacified portions of both ureters demonstrate normal caliber. No filling defect within the well opacified ureters. Bladder wall thickness is normal. Small focus of gas within the anti dependent urinary bladder, (6/39). No filling defects seen. No calcified bladder stones. Other solid organs: Liver is normal in size and enhancement. Gallbladder is unremarkable. Biliary system is non dilated. Pancreas enhances normally. Spleen is normal in size and enhancement. No adrenal nodules. Peritoneum and bowel: Bowel loops demonstrate normal wall thickness and caliber. Diverticulosis. Appendix is not seen. No free fluid or air. Nodes and vessels: No retroperitoneal or mesenteric adenopathy by size criteria. Small shotty mesenteric lymph nodes. Aorta and inferior vena cava are normal in size. Rim calcified splenic artery aneurysm. Abdominal wall: No ventral hernias. Pelvis: No pathologic free pelvic fluid. Large bilobed left ovarian cyst measuring 4.4 cm and 3.5 cm. The septation appears nodular, (3/172). Small uterine calcifications possibly small fibroids. No inguinal hernias or adenopathy. Bones: No suspicious bony lesions. No vertebral body compression fractures. IMPRESSION: 1. No kidney stones. No solid renal mass. No upper urinary tract filling defect. 2. Focus of gas within the urinary bladder. Etiology is uncertain. Correlate with recent catheterization/instrumentation. This could also be seen in gas-forming infection or fistula. 3. Large bilobed left ovarian cyst with nodularity suspected at the septation. This could represent ovarian neoplasm. -Recommend further initial evaluation with pelvic ultrasound. 4. Diverticulosis. No diverticulitis. No free fluid. Dictated by: Anant Chicas M.D. on 05/31/2021 at 14:25 Approved by: Anant Chicas M.D. on 05/31/2021 at 14:40
== END ==
PROVIDERS: PCP Family Medicine; Referring Provider Urology; Visit Provider Urology
DX: N39.0 Urinary tract infection, site not specified (principal); N83.202 Unspecified ovarian cyst, left side; K57.90 Diverticulosis of intestine, part unspecified, without perforation or abscess without bleeding
CPT/HCPCS: 74178

== ENCOUNTER → 2021-06-02 10:22 | Outpatient (CLI) | payer MEDICARE, OTHER, SELFPAY ==
[2021-05-25 13:42] VITALS: BMI 24.4
[2021-06-02 12:44] LABS: Cancer Antigen 125 9.1 U/mL (0-35); Carcinoembryonic Antigen 2.4 ng/mL (0.1-3.0)
[2021-06-03 07:09] LABS: Cancer (Carbohydrate) Ag 19-9 15 U/mL (0-35)
[2021-06-06 10:33] LABS: Human Epididymis Prot 4 54.6 pmol/L (0.0-96.9)
== END ==
PROVIDERS: PCP Family Medicine; Referring Provider Obstetrics & Gynecology; Visit Provider Obstetrics & Gynecology
DX: N83.8 Other noninflammatory disorders of ovary, fallopian tube and broad ligament (principal); R19.09 Other intra-abdominal and pelvic swelling, mass and lump; M25.551 Pain in right hip; Q51.9 Congenital malformation of uterus and cervix, unspecified
CPT/HCPCS: 36415; 82378; 86301; 86304; 86305

== ENCOUNTER → 2021-06-08 09:41 | Outpatient (CLI) | payer MEDICARE, OTHER, SELFPAY ==
[2021-05-25 13:42] VITALS: BMI 24.4
--- NOTE | 2021-06-08 09:43 | DI.US.S_ITS ---
PROCEDURE: US PELVIC COMPLETE INDICATIONS: LEFT OVARIAN MASS AND UTERINE CALCIFICATIONS - FOLLOW UP CT TECHNIQUE: Real-time scanning was performed of the pelvic organs, with image documentation. Additional endovaginal scanning was necessary due to incomplete visualization of the adnexal and endometrial structures by transabdominal scanning. COMPARISON: [facility], CT, CT ABDOMEN PELVIS WO/W CON, 05/31/2021, 12:19. FINDINGS: Uterus: Uterus is normal in size at 6.1 x 4.1 x 3.2 cm. The endometrium measures 3.6 mm in combined thickness. Mild medium and endometrium are heterogeneous. There is a 1.7 x 0.9 x 1.4 cm hypoechoic structure in the anterior fundal area with foci of calcification, suspicious for a intramural fibroid. On Doppler ultrasound, there is internal vascularity within the structure. There are nabothian cyst in cervix. Trace amount of simple fluid is seen in the endometrial and endocervical canal. Ovaries: The right ovary measures 3.8 x 1.9 x 2.9 cm. There is a 2.9 x 1.9 x 1.3 cm septated cyst in the right ovary. Left ovary is enlarged, measuring 7.9 x 4.6 x 4.2 cm. There is a large complex mixed solid and cyst with debris measuring 6.8 x 3.8 x 3.9 cm. There is nodularity and vascularity along the wall and the internal septae of the complex mass. Other: No pathologic free abdominal or pelvic fluid. IMPRESSION: 1. A 1.7 x 0.9 x 1.4 cm heterogeneous structure in the anterior fundal area of the uterine wall with foci of calcification, probably a uterine fibroid. 2. Large 6.8 x 3.8 x 3.9 cm complex mixed solid and cystic mass arising from the left ovary. There is nodularity and internal vascularity of the wall and internal septa of the mass. Differential diagnosis include malignant versus benign ovarian neoplasm. 3. A 2.9 x 1.9 x 1.3 cm complex cyst in the right ovary. 4. No pathological free-fluid. Dictated by: Rajani Dunbar M.D. on 06/08/2021 at 14:32 Approved by: Rajani Dunbar M.D. on 06/08/2021 at 14:43
== END ==
PROVIDERS: PCP Family Medicine; Referring Provider Obstetrics & Gynecology; Visit Provider Obstetrics & Gynecology
DX: N83.8 Other noninflammatory disorders of ovary, fallopian tube and broad ligament (principal); R19.09 Other intra-abdominal and pelvic swelling, mass and lump; Q51.9 Congenital malformation of uterus and cervix, unspecified; N83.291 Other ovarian cyst, right side; N83.292 Other ovarian cyst, left side
CPT/HCPCS: 76830; 76856

== ENCOUNTER → 2021-06-29 12:45 | Outpatient (CLI) | payer MEDICARE, OTHER, SELFPAY ==
[2021-05-25 13:42] VITALS: BMI 24.4
== END ==
PROVIDERS: PCP Family Medicine; Referring Provider Obstetrics & Gynecology; Visit Provider Obstetrics & Gynecology
DX: Z01.818 Encounter for other preprocedural examination (principal)
CPT/HCPCS: 93005

== ENCOUNTER → 2021-07-03 09:05 | Outpatient (CLI) | payer MEDICARE, OTHER, SELFPAY ==
[2021-05-25 13:42] VITALS: BMI 24.4
[2021-07-03 11:13] LABS: COVID-19 CEPHEID PCR (VTM/NP) Negative (Negative)
== END ==
PROVIDERS: PCP Family Medicine; Visit Provider Nurse Practitioner
DX: Z20.822 Contact with and (suspected) exposure to COVID-19 (principal)
CPT/HCPCS: C9803; U0003

== ENCOUNTER → 2021-09-02 10:22 | Outpatient (CLI) | payer MEDICARE, OTHER, SELFPAY ==
[2021-08-02 10:45] VITALS: BMI 24.4
== END ==
PROVIDERS: PCP Family Medicine; Visit Provider Nurse Practitioner
DX: N34.3 Urethral syndrome, unspecified (principal)
CPT/HCPCS: 87077; 87086; 87186

== ENCOUNTER → 2021-09-13 10:26 | Outpatient (CLI) | payer MEDICARE, OTHER, SELFPAY ==
[2021-08-02 10:45] VITALS: BMI 24.4
[2021-09-13 12:44] LABS: Appearance Urine UA CLEAR; Bilirubin Urine UA NEGATIVE (NEGATIVE); Color Urine UA YELLOW; Glucose Urine UA NEGATIVE (Negative); Ketones Urine UA NEGATIVE (NEGATIVE); Leukocyte Esterase Urine UA NEGATIVE (NEGATIVE); Nitrite Urine UA NEGATIVE (Negative); Occult Blood Urine UA TRACE-INTACT (Negative); Protein Urine UA NEGATIVE (Negative); Urobilinogen Urine UA 0.2 E.U./dL (0.2)
[2021-09-13 12:47] LABS: pH Urine UA 5.5 (4.5-8.0)
[2021-09-13 13:04] LABS: Bacteria Urine None Seen; Culture Indicated Urine Specimen Cultured; RBC Urine 1-5/HPF (0-5/HPF); Squamous Epithelial Cell Urine 1-5 /HPF (0-5/HPF); WBC Urine 5-10/HPF (0-5/HPF)
== END ==
PROVIDERS: PCP Family Medicine; Referring Provider Urology; Visit Provider Urology
DX: N12 Tubulo-interstitial nephritis, not specified as acute or chronic (principal); N39.0 Urinary tract infection, site not specified
CPT/HCPCS: 81001; 87086

== ENCOUNTER → 2021-12-25 12:10 | Outpatient (CLI) | payer MEDICARE, OTHER, SELFPAY ==
[2021-08-02 10:45] VITALS: BMI 24.4
[2021-12-25 13:47] LABS: Appearance Urine UA SL CLOUDY; Bilirubin Urine UA NEGATIVE (NEGATIVE); Color Urine UA YELLOW; Glucose Urine UA NEGATIVE (Negative); Ketones Urine UA NEGATIVE (NEGATIVE); Leukocyte Esterase Urine UA 1+ (NEGATIVE); Nitrite Urine UA POSITIVE (Negative); Occult Blood Urine UA TRACE-INTACT (Negative); Protein Urine UA NEGATIVE (Negative); Urobilinogen Urine UA 0.2 E.U./dL (0.2)
[2021-12-25 13:48] LABS: pH Urine UA 5.5 (4.5-8.0)
[2021-12-25 13:57] LABS: Bacteria Urine Many (>30); RBC Urine None Seen (0-5/HPF); Squamous Epithelial Cell Urine 5-10 /HPF (0-5/HPF); Transitional Epi Cells Urine 1-5/HPF (0-5/HPF); WBC Urine 30-100/HPF (0-5/HPF)
[2021-12-25 13:58] LABS: Culture Indicated Urine Cult Not Indicated
== END ==
PROVIDERS: PCP Family Medicine; Referring Provider Specialist; Visit Provider Specialist
DX: N39.0 Urinary tract infection, site not specified (principal); Z87.448 Personal history of other diseases of urinary system
CPT/HCPCS: 81001

== ENCOUNTER → 2022-01-01 10:20 | Outpatient (CLI) | payer MEDICARE, OTHER, SELFPAY ==
[2021-08-02 10:45] VITALS: BMI 24.4
== END ==
PROVIDERS: PCP Family Medicine; Visit Provider Urology
DX: N39.0 Urinary tract infection, site not specified (principal); R30.0 Dysuria
CPT/HCPCS: 51701; 87086

== ENCOUNTER → 2022-04-12 09:59 | Outpatient (CLI) | payer MEDICARE, OTHER, SELFPAY ==
[2021-08-02 10:45] VITALS: BMI 24.4
--- NOTE | 2022-04-12 10:02 | DI.MG.S_ITS ---
BILATERAL DIGITAL SCREENING MAMMOGRAM 3D/2D WITH CAD: 04/12/2022 CLINICAL: Routine screening. Family history of breast cancer. Comparison is made to exams dated: 07/06/2020 mammogram and 06/03/2018 mammogram - [facility]. There are scattered fibroglandular elements in both breasts. Current study was also evaluated with a Computer Aided Detection (CAD) system. No significant masses, calcifications, or other findings are seen in either breast. There has been no significant interval change. IMPRESSION: NEGATIVE There is no mammographic evidence of malignancy. A 1 year screening mammogram is recommended. This exam was interpreted at Station ID: [id number]. NOTE: For mammograms, a report in lay terms will be sent to the patient. Approximately 15% of breast malignancies will not be visualized mammographically. In the management of a palpable breast mass, a negative mammogram must not discourage biopsy of a clinically suspicious lesion. Electronically Signed By: Jacob woods/vonda:04/12/2022 11:15:22 letter sent: Normal Exam ACR BI-RADS Category 1: Negative 3341F
[2022-04-12 12:58] LABS: Cancer Antigen 125 7.1 U/mL (0-35)
== END ==
PROVIDERS: Obstetrics & Gynecology; PCP Family Medicine; Referring Provider Physician Assistant; Visit Provider Physician Assistant
DX: Z12.31 Encounter for screening mammogram for malignant neoplasm of breast (principal); C56.9 Malignant neoplasm of unspecified ovary; Z80.3 Family history of malignant neoplasm of breast
CPT/HCPCS: 36415; 77063; 77067; 86304

== ENCOUNTER → 2022-07-07 09:45 | Outpatient (CLI) | payer MEDICARE, OTHER, SELFPAY ==
[2021-08-02 10:45] VITALS: BMI 24.4
== END ==
PROVIDERS: PCP Family Medicine; Visit Provider Nurse Practitioner Family
DX: R30.0 Dysuria (principal)
CPT/HCPCS: 87077; 87086; 87186

== ENCOUNTER → 2022-07-18 09:47 | Outpatient (CLI) | payer MEDICARE, OTHER, SELFPAY ==
[2021-08-02 10:45] VITALS: BMI 24.4
[2022-07-18 11:03] LABS: Bilirubin Urine UA Negative (NEGATIVE); Color Urine UA YELLOW; Glucose Urine UA NEGATIVE (Negative); Ketones Urine UA NEGATIVE (NEGATIVE); Nitrite Urine UA NEGATIVE (Negative); Protein Urine UA Negative (Negative)
[2022-07-18 11:04] LABS: Urobilinogen Urine UA 0.2 E.U./dL (0.2)
[2022-07-18 11:09] LABS: Appearance Urine UA Slightly Cloudy; Specific Gravity Urine UA 1.005 (1.000-1.035)
[2022-07-18 11:10] LABS: Bacteria Urine Many (>30); Culture Indicated Urine Specimen Cultured; Leukocyte Esterase Urine UA 3+ (NEGATIVE); Occult Blood Urine UA TRACE-INTACT (Negative); RBC Urine 1-5/HPF (0-5/HPF); WBC Urine 10-30/HPF (0-5/HPF)
[2022-07-18 12:22] LABS: Cancer Antigen 125 7.1 U/mL (0-35)
== END ==
PROVIDERS: PCP Family Medicine; Referring Provider Obstetrics & Gynecology; Visit Provider Urology
DX: C56.9 Malignant neoplasm of unspecified ovary (principal); N39.0 Urinary tract infection, site not specified
CPT/HCPCS: 36415; 81001; 86304; 87077; 87086; 87186

== ENCOUNTER → 2022-10-24 11:37 | Outpatient (CLI) | payer MEDICARE, OTHER, SELFPAY ==
[2021-08-02 10:45] VITALS: BMI 24.4
[2022-10-24 13:10] LABS: Cancer Antigen 125 6.8 U/mL (0-35)
== END ==
PROVIDERS: PCP Family Medicine; Referring Provider Obstetrics & Gynecology; Visit Provider Obstetrics & Gynecology
DX: C56.9 Malignant neoplasm of unspecified ovary (principal)
CPT/HCPCS: 36415; 86304

== ENCOUNTER → 2022-12-15 10:02 | Outpatient (CLI) | payer MEDICARE, OTHER, SELFPAY ==
[2021-08-02 10:45] VITALS: BMI 24.4
== END ==
PROVIDERS: PCP Family Medicine; Visit Provider Physician Assistant Medical
DX: N39.0 Urinary tract infection, site not specified (principal)
CPT/HCPCS: 87077; 87086; 87186

== ENCOUNTER → 2023-01-31 11:48 | Outpatient (CLI) | payer MEDICARE, OTHER, SELFPAY ==
[2021-08-02 10:45] VITALS: BMI 24.4
[2023-01-31 13:32] LABS: Cancer Antigen 125 6.7 U/mL (0-35)
== END ==
PROVIDERS: PCP Family Medicine; Referring Provider Registered Nurse Obstetric, High-Risk; Visit Provider Registered Nurse Obstetric, High-Risk
DX: C56.3 Malignant neoplasm of bilateral ovaries (principal); Z85.43 Personal history of malignant neoplasm of ovary
CPT/HCPCS: 36415; 86304

== ENCOUNTER → 2023-04-18 11:35 | Outpatient (CLI) | payer MEDICARE, OTHER, SELFPAY ==
[2021-08-02 10:45] VITALS: BMI 24.4
--- NOTE | 2023-04-18 | DI.MG.S_ITS ---
BILATERAL DIGITAL SCREENING MAMMOGRAM 3D/2D WITH CAD: 04/18/2023 CLINICAL: Routine screening. Family history of breast cancer. Comparison is made to exams dated: 04/12/2022 mammogram, 07/06/2020 mammogram, and 06/03/2018 mammogram - [facility]. There are scattered areas of fibroglandular density in both breasts (category b / 25%-50% glandular tissue). Current study was also evaluated with a Computer Aided Detection (CAD) system. No significant masses, calcifications, or other findings are seen in either breast. There has been no significant interval change. IMPRESSION: NEGATIVE There is no mammographic evidence of malignancy. A 1 year screening mammogram is recommended. Based on the Tyrer Cuzick model (a risk assessment model) the patient's lifetime risk is 2.9% and her 10 year risk is 2.4%. According to the ACR, ACS, and NCCN guidelines, an annual breast MRI exam along with mammogram is recommended if the patient's lifetime risk is 20% or greater. This exam was interpreted at Station ID: [id number]. NOTE: For mammograms, a report in lay terms will be sent to the patient. Approximately 15% of breast malignancies will not be visualized mammographically. In the management of a palpable breast mass, a negative mammogram must not discourage biopsy of a clinically suspicious lesion. Electronically Signed By: Indio giron/vonda:04/18/2023 14:15:33 letter sent: Normal Exam ACR BI-RADS Category 1: Negative 3341F
== END ==
PROVIDERS: PCP Family Medicine; Referring Provider Family Medicine; Visit Provider Family Medicine
DX: Z12.31 Encounter for screening mammogram for malignant neoplasm of breast (principal); Z80.3 Family history of malignant neoplasm of breast
CPT/HCPCS: 77063; 77067

== ENCOUNTER → 2023-05-03 09:58 | Outpatient (CLI) | payer MEDICARE, OTHER, SELFPAY ==
[2021-08-02 10:45] VITALS: BMI 24.4
== END ==
PROVIDERS: PCP Family Medicine; Visit Provider Nurse Practitioner Family
DX: N39.0 Urinary tract infection, site not specified (principal)
CPT/HCPCS: 87077; 87086; 87186

== ENCOUNTER → 2023-05-23 13:20 | Outpatient (CLI) | payer MEDICARE, OTHER, SELFPAY ==
[2021-08-02 10:45] VITALS: BMI 24.4
== END ==
PROVIDERS: PCP Family Medicine; Referring Provider Obstetrics & Gynecology; Visit Provider Obstetrics & Gynecology
DX: C57.00 Malignant neoplasm of unspecified fallopian tube (principal)
CPT/HCPCS: 36415; 86304

== ENCOUNTER → 2023-06-21 09:33 | Outpatient (CLI) | payer MEDICARE, OTHER, SELFPAY ==
[2021-08-02 10:45] VITALS: BMI 24.4
[2023-06-21 11:01] LABS: Alanine Aminotransferase 14 IU/L (<35); Albumin 4.5 g/dL (3.5-5.0); Albumin Globulin Ratio 1.6 (1.0-2.8); Alkaline Phosphatase 88 U/L (38-126); Aspartate Aminotransferase 25 IU/L (14-36); BUN Creatinine Ratio 16.4 (6-22); Bilirubin Total 0.5 mg/dL (0.2-1.3); Blood Urea Nitrogen 11 mg/dL (7-17); Calcium 9.7 mg/dL (8.4-10.2); Carbon Dioxide 28 mmol/L (22-32); Chloride 101 mmol/L (98-107); Cholesterol 241 mg/dL (140-199); Estimated Glomerular Filt Rate > 60 mL/min (>60); Globulin 2.9 g/dL (1.7-4.1); Glucose 86 mg/dL (80-110); HDL Cholesterol 75 mg/dL (40-60); HEMOLYSIS < 15 (0-50); LDL Cholesterol Calculated 138 mg/dL (<100); Potassium 4.7 mmol/L (3.4-5.1); Sodium 135 mmol/L (137-145); Total Protein 7.4 g/dL (6.3-8.2); Triglycerides 142 mg/dL (35-150)
[2023-06-21 11:15] LABS: Cancer Antigen 125 11.4 U/mL (0-35)
[2023-06-21 12:05] LABS: Creatinine Urine Random 65.8 mg/dL
[2023-06-21 12:08] LABS: Microalbumi Creatinin Ratio Ur 10.6 ug/mg CR (<30); Microalbumin Urine Random 0.7 mg/dL (0-1.6)
[2023-06-22 07:03] LABS: Labcorp Hemoglobin (Hb) A1c 5.7 % (4.8-5.6)
== END ==
PROVIDERS: PCP Family Medicine; Referring Provider Registered Nurse Obstetric, High-Risk; Visit Provider Family Medicine
DX: C56.3 Malignant neoplasm of bilateral ovaries (principal); I10 Essential (primary) hypertension; Z85.43 Personal history of malignant neoplasm of ovary; Z08 Encounter for follow-up examination after completed treatment for malignant neoplasm
CPT/HCPCS: 36415; 80053; 80061; 82043; 82570; 83036; 86304

== ENCOUNTER → 2023-07-09 08:00 | Outpatient (CLI) | payer MEDICARE, OTHER, SELFPAY ==
[2021-08-02 10:45] VITALS: BMI 24.4
--- NOTE | 2023-07-09 09:34 | DI.CT.S_ITS ---
PROCEDURE: CT CHEST ABD PEL W CON INDICATIONS: Malignant neoplasm of bilateral ovaries TECHNIQUE: After the administration of oral and intravenous contrast, axial sections acquired from the supraclavicular neck to the pubic symphysis. Coronal and sagittal reformats were performed. For radiation dose reduction, the following was used: automated exposure control, adjustment of mA and/or kV according to patient size. COMPARISON: [facility], CT, CT ABDOMEN PELVIS WO/W CON, 05/31/2021, 12:19. FINDINGS: Image quality: Excellent. CHEST: Lower Neck: No enlarged lymph nodes. Thyroid: Within normal limits. Axillae: No enlarged lymph nodes. Chest Wall: Unremarkable. Lungs and Airways: No consolidation or suspicious nodules. Calcified granuloma, right upper lobe, image 80/5. Pleura: No pneumothorax or pleural effusions. Heart: Heart size is normal. No pericardial effusion. Thoracic Vessels: The aorta and pulmonary arteries demonstrate normal size. Mediastinum and Ana: No enlarged lymph nodes. Esophagus: No wall thickening. Small hiatal hernia. ABDOMEN: Liver: Unremarkable. Gallbladder: Unremarkable. Biliary ducts: Unremarkable. Pancreas: Unremarkable. Spleen: Unremarkable. Adrenal Glands: Unremarkable. Kidneys and Ureters: Unremarkable. Stomach and Bowel: Moderately advanced sigmoid diverticulosis without evidence of diverticulitis. No dilated loops. No wall thickening. Peritoneum: No abnormal intraperitoneal fluid. No free air. Ventral Wall: No hernia. Abdominal Nodes: No retroperitoneal or mesenteric adenopathy by size criteria. Vessels: Aorta and inferior vena cava are normal in size. 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 No further follow-up required. PELVIS: Pelvic Organs: Uterus is surgically absent. No adnexal masses.. Bladder: Unremarkable. Pelvic Nodes: No enlarged lymph nodes. Miscellaneous: No inguinal hernias are seen. Bones: Lumbar degenerative change. No lytic or blastic bony lesions. No compression fractures. IMPRESSION: 1. No evidence of metastatic disease in the chest, abdomen, and pelvis. 2. Small hiatal hernia. 3. Moderately advanced sigmoid diverticulosis. Dictated by: Nadir Guzman M.D. on 07/09/2023 at 11:49 Approved by: Nadir Guzman M.D. on 07/09/2023 at 11:59
== END ==
PROVIDERS: PCP Family Medicine; Referring Provider Registered Nurse Obstetric, High-Risk; Visit Provider Registered Nurse Obstetric, High-Risk
DX: C56.3 Malignant neoplasm of bilateral ovaries (principal); K44.9 Diaphragmatic hernia without obstruction or gangrene; K57.30 Diverticulosis of large intestine without perforation or abscess without bleeding
CPT/HCPCS: 71260; 74177; Q9967

== ENCOUNTER → 2023-07-22 10:11 | Outpatient (CLI) | payer MEDICARE, OTHER, SELFPAY ==
[2021-08-02 10:45] VITALS: BMI 24.4
[2023-07-22 12:14] LABS: Cancer Antigen 125 34.1 U/mL (0-35)
== END ==
PROVIDERS: PCP Family Medicine; Referring Provider Obstetrics & Gynecology; Visit Provider Obstetrics & Gynecology
DX: C56.3 Malignant neoplasm of bilateral ovaries (principal)
CPT/HCPCS: 36415; 86304

== ENCOUNTER → 2023-08-07 10:18 | Outpatient (CLI) | payer MEDICARE, OTHER, SELFPAY ==
[2021-08-02 10:45] VITALS: BMI 24.4
== END ==
PROVIDERS: PCP Family Medicine; Visit Provider Student in an Organized Health Care Education/Training Program
DX: R30.0 Dysuria (principal)
CPT/HCPCS: 87077; 87086; 87186

== ENCOUNTER → 2023-08-19 09:21 | Outpatient (CLI) | payer MEDICARE, OTHER, SELFPAY ==
[2021-08-02 10:45] VITALS: BMI 24.4
== END ==
PROVIDERS: PCP Family Medicine; Visit Provider Physician Assistant
DX: R30.0 Dysuria (principal)
CPT/HCPCS: 87086

== ENCOUNTER → 2023-08-19 09:59 | Outpatient (CLI) | payer MEDICARE, OTHER, SELFPAY ==
[2021-08-02 10:45] VITALS: BMI 24.4
[2023-08-19 11:43] LABS: Cancer Antigen 125 80.8 U/mL (0-35)
== END ==
PROVIDERS: PCP Family Medicine; Referring Provider Obstetrics & Gynecology; Visit Provider Obstetrics & Gynecology
DX: C56.3 Malignant neoplasm of bilateral ovaries (principal); R30.0 Dysuria
CPT/HCPCS: 36415; 86304; 87077; 87086; 87186

== ENCOUNTER → 2023-09-16 11:33 | Outpatient (CLI) | payer MEDICARE, OTHER, SELFPAY ==
[2021-08-02 10:45] VITALS: BMI 24.4
[2023-09-16 14:02] LABS: Cancer Antigen 125 95.7 U/mL (0-35)
== END ==
PROVIDERS: PCP Family Medicine; Referring Provider Obstetrics & Gynecology; Visit Provider Obstetrics & Gynecology
DX: C56.3 Malignant neoplasm of bilateral ovaries (principal)
CPT/HCPCS: 36415; 86304

== ENCOUNTER → 2023-10-22 13:42 | Outpatient (CLI) | payer MEDICARE, OTHER, SELFPAY ==
[2021-08-02 10:45] VITALS: BMI 24.4
[2023-10-22 15:05] LABS: Cancer Antigen 125 139 U/mL (0-35)
== END ==
PROVIDERS: PCP Family Medicine; Referring Provider Obstetrics & Gynecology; Visit Provider Obstetrics & Gynecology
DX: C56.3 Malignant neoplasm of bilateral ovaries (principal)
CPT/HCPCS: 36415; 86304

== ENCOUNTER → 2023-11-21 09:09 | Outpatient (CLI) | payer MEDICARE, OTHER, SELFPAY ==
[2021-08-02 10:45] VITALS: BMI 24.4
[2023-11-21 10:43] LABS: Cancer Antigen 125 315 U/mL (0-35)
== END ==
PROVIDERS: PCP Family Medicine; Referring Provider Obstetrics & Gynecology; Visit Provider Obstetrics & Gynecology
DX: C56.3 Malignant neoplasm of bilateral ovaries (principal)
CPT/HCPCS: 36415; 86304

== ENCOUNTER → 2023-11-23 11:02 | Outpatient (ROUT) | payer MEDICARE, OTHER, SELFPAY ==
[2021-08-02 10:45] VITALS: BMI 24.4
[2023-11-23 11:26] LABS: Appearance Urine UA CLEAR; Bilirubin Urine UA NEGATIVE (NEGATIVE); Color Urine UA YELLOW; Glucose Urine UA NEGATIVE (Negative); Ketones Urine UA NEGATIVE (NEGATIVE); Leukocyte Esterase Urine UA 3+ (NEGATIVE); Nitrite Urine UA NEGATIVE (Negative); Occult Blood Urine UA 1+ (Negative); Protein Urine UA 1+ (Negative); Urobilinogen Urine UA 0.2 E.U./dL (0.2)
[2023-11-23 11:45] LABS: Bacteria Urine Moderate (10-30); Culture Indicated Urine Specimen Cultured; RBC Urine 1-5/HPF (0-5/HPF); Squamous Epithelial Cell Urine None Seen (0-5/HPF); WBC Urine >100/HPF (0-5/HPF)
== END ==
PROVIDERS: PCP Family Medicine; Visit Provider Student in an Organized Health Care Education/Training Program
DX: R30.0 Dysuria (principal)
CPT/HCPCS: 81001; 87077; 87086; 87186

== ENCOUNTER → 2023-11-29 14:19 | Outpatient (CLI) | payer MEDICARE, OTHER, SELFPAY ==
[2021-08-02 10:45] VITALS: BMI 24.4
[2023-11-29 16:01] LABS: Estimated Glomerular Filt Rate > 60 mL/min (>60)
== END ==
LOC: LAB 14:22
PROVIDERS: Specialist; PCP Family Medicine; Referring Provider Registered Nurse Obstetric, High-Risk; Visit Provider Registered Nurse Obstetric, High-Risk
DX: Z87.448 Personal history of other diseases of urinary system (principal)
CPT/HCPCS: 36415; 82565

== ENCOUNTER → 2023-11-30 12:13 | Outpatient (CLI) | payer MEDICARE, OTHER, SELFPAY ==
[2021-08-02 10:45] VITALS: BMI 24.4
--- NOTE | 2023-11-30 | DI.CT.S_ITS ---
PROCEDURE: CT CHEST ABD PEL W CON INDICATIONS: OVARIAN CANCER TECHNIQUE: After the administration of intravenous contrast, 5 mm thick sections acquired from the lung apices to the symphysis. 5 mm coronal and sagittal reformats were performed, with additional 7 mm MIP reformats through the lungs. For radiation dose reduction, the following was used: automated exposure control, adjustment of mA and/or kV according to patient size. COMPARISON: [facility], CT, CT CHEST ABD PEL W CON, 07/09/2023, 9:35. FINDINGS: Image quality: Excellent. CHEST: Lower Neck: No enlarged lymph nodes. Thyroid: No thyroid nodules which require sonographic follow up, per consensus guidelines. Axillae: No enlarged lymph nodes. Chest Wall: Unremarkable. Lungs and Pleura: No pneumothorax or pleural effusions. No consolidation. No new or enlarging pulmonary nodule. Heart: Heart size is normal. No pericardial effusion. Thoracic Vessels: The aorta and pulmonary arteries demonstrate normal size. Mediastinum and Ana: No enlarged lymph nodes. Esophagus: No wall thickening. Moderate hiatal hernia. ABDOMEN: Liver: No solid mass. Gallbladder: No radiopaque gallstones or wall thickening. Biliary ducts: No biliary dilation. Pancreas: No ductal dilation. Spleen: Size is within normal limits. Adrenal Glands: No adrenal nodules. Kidneys and Ureters: No hydronephrosis. No solid mass. No complex renal cystic lesion which requires follow up. Stomach and Bowel: Normal colonic caliber, without significant wall thickening. Colonic diverticulosis without acute inflammation. Peritoneum: There is soft tissue inhomogeneity in the peritoneum most evident in the left upper quadrant, for example coronal series 3, image 22 concerning for peritoneal carcinomatosis. There is moderate volume free fluid in the abdomen and pelvis. No pneumoperitoneum. Ventral Wall: No hernia. Abdominal Nodes: No retroperitoneal or mesenteric adenopathy by size criteria. Vessels: Aorta and inferior vena cava are normal in size. Redemonstration of peripherally calcified 1.3 centimeter splenic artery aneurysm. No further follow-up is required. PELVIS: Pelvic Organs: Uterus is surgically absent. No adnexal masses visualized. Bladder: Unremarkable. Pelvic Nodes: No enlarged lymph nodes. Miscellaneous: No inguinal hernias are seen. Left femoral hernia containing ascites. Bones: Degenerative changes of the spine without acute or suspicious osseous abnormality. IMPRESSION: Peritoneal soft tissue heterogeneity most notable in the left upper quadrant is concerning for peritoneal carcinomatosis in the context of rising tumor markers. New moderate abdominopelvic ascites. Approved by: Linsey Wolf M.D. on 12/01/2023 at 20:59
== END ==
LOC: CT 12:15
PROVIDERS: PCP Family Medicine; Referring Provider Registered Nurse Obstetric, High-Risk; Visit Provider Registered Nurse Obstetric, High-Risk
DX: Z85.43 Personal history of malignant neoplasm of ovary; K66.9 Disorder of peritoneum, unspecified; Z08 Encounter for follow-up examination after completed treatment for malignant neoplasm; R18.8 Other ascites; R97.8 Other abnormal tumor markers
CPT/HCPCS: 71260; 74177; Q9967

== ENCOUNTER → 2023-12-05 15:00 | Outpatient (CLI) | payer MEDICARE, OTHER, SELFPAY ==
[2021-08-02 10:45] VITALS: BMI 24.4
--- NOTE | 2023-12-05 | PATH_ITS ---
Note [facility] Accession Number: [id number] TESTS RESULT FLAG UNITS REF RANGE LAB Clinician Provided Cytology Information No. of containers..01 Other (Miscellaneous) Source: ASCITES DIAGNOSIS: ASCITES INCONCLUSIVE. ANCILLARY STUDIES PENDING; RESULTS WILL BE REPORTED AN ADDENDUM. THIS INTERPRETATION INCLUDES EVALUATION OF A CELL BLOCK. Pathologist ICD10: R18.8 Signed out by: Drea Wagoner MD, Pathologist NPI- [id number] Performed by: Cam Tang, Business Unit Manager ([facility]) Gross description: 70 CC, YELLOW, CLOUDY RECEIVED: FRESH IN BLUE CAP CONTAINER.VO /VDU 12/06/2023 0702 Local FLAG LEGEND: L-Low Normal,H-High Normal,LL-Alert Low,HH-Alert High <-Panic Low,>-Panic High,A-Abnormal,AA-Critical Abnormal Performed at: 01 =Z [facility] [address], [place] [address] Musa Dumont MD, Performed at: 01 [facility] [address], [place], [place] [id number] MD Musa Dumont MD Phone: [phone]
--- NOTE | 2023-12-05 15:07 | DI.US.S_ITS ---
PROCEDURE: US PARACENTESIS INDICATIONS: MALIGNANT ASCITES TECHNIQUE: The indications, alternatives, benefits, risks, and complications of the procedure were explained to the patient. Written informed consent was obtained and placed in the chart. The abdomen and pelvis were examined sonographically, and an appropriate site was chosen for paracentesis. The skin was prepared and draped in the usual sterile fashion, and 1% lidocaine was infiltrated from the skin down through the peritoneal surface. A 19-gauge catheter-covered needle was then introduced into the peritoneal space, the catheter was advanced and the needle was withdrawn, and thereafter peritoneal fluid was withdrawn. The catheter was then removed and a dressing was applied. The fluid was discarded if the clinician did not order diagnostic testing of the fluid. COMPARISON: None. FINDINGS: Access site: Left lower quadrant Needle: One-Step centesis catheter with introducer needle. Fluid volume and description: 2060 cc of yellow fluid Fluid sent for diagnostic testing: Sent for cytology and labs ordered by requesting team Medications: 1% lidocaine for local anaesthesia. Complications: None. IMPRESSION: Successful ultrasound-guided paracentesis. Dictated by: Thomas Gibbs M.D. on 12/05/2023 at 17:36 Approved by: Thomas Gibbs M.D. on 12/05/2023 at 17:37
== END ==
LOC: US 15:02
PROVIDERS: PCP Family Medicine; Referring Provider Registered Nurse Obstetric, High-Risk; Visit Provider Registered Nurse Obstetric, High-Risk
DX: C56.3 Malignant neoplasm of bilateral ovaries (principal); R18.0 Malignant ascites
CPT/HCPCS: 49083

== ENCOUNTER → 2023-12-07 12:21 | Outpatient (CLI) | payer MEDICARE, OTHER, SELFPAY ==
[2021-08-02 10:45] VITALS: BMI 24.4
== END ==
PROVIDERS: PCP Family Medicine; Visit Provider Nurse Practitioner Family
DX: R30.0 Dysuria (principal)
CPT/HCPCS: 87077; 87086; 87186

== ENCOUNTER → 2023-12-24 13:17 | Outpatient (CLI) | payer MEDICARE, OTHER, SELFPAY ==
[2021-08-02 10:45] VITALS: BMI 24.4
[2023-12-24 15:18] LABS: Cancer Antigen 125 512 U/mL (0-35)
== END ==
PROVIDERS: PCP Family Medicine; Referring Provider Registered Nurse Obstetric, High-Risk; Visit Provider Registered Nurse Obstetric, High-Risk
DX: R97.1 Elevated cancer antigen 125 [CA 125] (principal)
CPT/HCPCS: 36415; 86304

== ENCOUNTER 2023-12-31 06:39 | Day surgery (SDC) | payer MEDICARE, OTHER, SELFPAY ==
[2021-08-02 10:45] VITALS: BMI 24.4
[2023-12-27 10:22] VITALS: BMI 25.1
--- NOTE | 2023-12-31 | DI.RAD.S_ITS ---
PROCEDURE: XR CHEST 1V INDICATIONS: Post op TECHNIQUE: One view of the chest was acquired. COMPARISON: [facility], CT, CT CHEST ABD PEL W CON, 11/30/2023, 13:27. FINDINGS: Surgical changes and devices: There is a Port-A-Cath in the left anterior chest with the tip in the area of SVC. Lungs and pleura: Lungs are clear. No pleural effusions or pneumothorax. Mediastinum: Mediastinal contours appear normal. Heart size is normal. Bones and chest wall: No suspicious bony lesions. Overlying soft tissues appear unremarkable. IMPRESSION: Port-A-Cath in expected position. No complication seen on chest x-ray. Dictated by: Rajani Dunbar M.D. on 12/31/2023 at 13:42 Approved by: Rajani Dunbar M.D. on 12/31/2023 at 13:43
[2023-12-31] MEDS: LACTATED RINGERS 1,000 ML 42 ML IV (06:49)
[2023-12-31 06:58] VITALS: BP 167/82; PULSE 72; RESP 18; TEMP 36.8; O2SAT 98; BMI 25.6
--- NOTE | 2023-12-31 07:50 | P.HP_ITS ---
History of Present Illness History of Present Illness Date Patient Seen: 12/31/23 Time Patient Seen: 07:50 Chief complaint: SDC Narrative: Needs venous access for chemotherapy. No previous ports. 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 [employer] Medical History Intermittent diarrhea Pelvic organ prolapse quantification stage 2 cystocele Pyelonephritis History of pyelonephritis Postmenopause atrophic vaginitis Ovarian cancer on left Recurrent urinary tract infection Cystocele Prolapse of female pelvic organs Osteoarthritis Osteopenia (2014) Chicken pox Congenital cataract Surgical History History of hysterectomy with bilateral oophorectomy History of gynecologic surgery (~10/05/19) Anesthesia History of bilateral tubal ligation Status post appendectomy (~1964) History of tonsillectomy (~1960) History of cataract removal with insertion of prosthetic lens (2016) History of knee replacement (10/02/16) History of knee replacement (11/22/15) S/P total knee arthroplasty Family History Father Heart disease High cholesterol Grandmother Age: 74 Heart disease Diabetes mellitus Brother Mental health problem Suicide Brother Diabetes mellitus Mother Pancreatic cancer Social History marital status: number of children: 2 household members: spouse lives independently: Yes caregiver/support person: No housing: house pets and animals: Yes education level: college marisa/buddhist: Zoroastrian other: gardening,quilting,chickens seatbelt use: always water heater temp set < 120 deg: Yes working smoke detector in home: Yes fire extinguisher in home: Yes carbon monox detector in home: Yes firearms in home: No Smoking Status: Never smoker second hand exposure: No alcohol intake: never substance use type: does not use during the past year weight has: remained stable well-balanced diet: daily or most days daily servings fruits/ve-4 caffeine: No eating out: rarely or never Type(s) of exercise: walking frequency: daily duration: 60-90 minutes/day Meds Home Medications and Allergies Home Medications Medication Instructions Recorded Confirmed Type multivitamin 1 tab PO DAILY 05/21/18 12/31/23 History vitamin B complex [B 1 tab PO DAILY 05/15/22 12/31/23 History Complex-Vitamin B12] ascorbate calcium (vitamin C) 1 tab PO DAILY 05/15/23 12/31/23 History d-mannose 1 tab PO BID 05/15/23 12/31/23 History magnesium chloride 1 tab PO DAILY 05/15/23 12/31/23 History omeprazole 20 mg capsule,delayed 20 mg PO DAILY 05/15/23 12/31/23 History release Allergies Allergy/AdvReac Type Severity Reaction Status Date / Time Calcium Channel Blocking Allergy Severe left side Verified 12/31/23 06:50 Agent Dilt of face, [CALCIUM CHANNEL BLOCKING removes AGENT DILT] calcium out of bones pravastatin Allergy Severe BACK AND Verified 12/31/23 06:50 RIB SPASMS midazolam [From VERSED] Allergy Mild assisted Verified 12/31/23 06:50 memory loss codeine [CODEINE] AdvReac Severe HALLUCINATI Verified 12/31/23 06:50 ONS diphenhydramine AdvReac Severe I'M Verified 12/31/23 06:50 [From BENADRYL] KNOCKED OUT FOR DAYS epinephrine [EPINEPHRINE] AdvReac Severe TREMORS, Verified 12/31/23 06:50 TACHYCARDIA ezetimibe AdvReac Severe back pain, Verified 12/31/23 06:50 dizziness Review of Systems Review of Systems ROS: Yes All systems reviewed with the patient and are negative except as otherwise documented Exam Vital Signs (past 8 hours): - 12/31/23 06:58 Temperature 98.3 F Pulse Rate 72 Respiratory Rate 18 Blood Pressure 167/82 H Pulse Oximetry 98 Oxygen Delivery Method Room Air Oxygen Delivery Method Room Air Const General: cooperative and comfortable [facility] Head: normocephalic and atraumatic Ears: hearing grossly normal bilaterally Neck Neck: trachea midline Chest Chest: normal inspection of the chest Resp Effort & Inspection: normal respiratory effort and able to speak in complete sentences Cardio Rate: regular rate Rhythm: regular rhythm GI Palpation: soft Skin General: atrophy Neuro General: patient alert, patient awake and patient oriented x3 Cognition: normal cognition Assessment & Plan Assessment & Plan narrative: Venous access for chemotherapy Plan: Power port placement. Time Spent With Patient Time with patient: less than 30 minutes
[2023-12-31] MEDS: CEFAZOLIN 2 GM/100 ML PREMIX 100 ML IV (08:02)
--- NOTE | 2023-12-31 08:14 | SUR.OPER ---
Supine on padded OR bed, head on gel donut, arms secured on padded arm boards at <90 degrees abduction, legs uncrossed, pillow under knees, safety belt at thigh, tape over blanket over lower legs.
[2023-12-31] MEDS: HEPARIN 5,000 UNIT, SODIUM CHLORIDE 0.9% 50 ML IV (08:23)
[2023-12-31] MEDS: BUPIVACAINE 0.25% (PF) 30 ML, EPINEPHrine 0.15 MG INJ (08:24)
[2023-12-31] MEDS: LIDOCAINE 1% 20 ML INJ (08:25)
--- NOTE | 2023-12-31 08:43 | P.OP_ITS ---
Operative Date/Time/Diagnoses Date of procedure: 12/31/23 Time of procedure: 08:43 Pre-op diagnosis: Venous access for chemotherapy Post-op diagnosis: same Procedure & Clinicians Procedure: Left subclavian vein PowerPort placement Same procedure as scheduled: Yes Indications: Chemotherapy Surgeon: Zoey Ye Click Yes if Unassisted: Yes Anesthesia Type: MAC +/- and Local Operative Notes Findings: Normal-appearing anatomy. Good venous return from the catheter. Fluoroscopy shows good positioning Closure Type: primary Specimen(s): none sent Prosthetic devices, grafts, tissues, transplants, or devices: PowerPort Blood products transfused: none Procedure in detail: Preop diagnosis: Venous access for chemotherapy Postop diagnosis: Same Operative procedure: Left subclavian vein PowerPort placement Surgeon: Zoila Ye MD Anesthetic: Mac with local Findings: Normal anatomy. Good positioning of the catheter tip on fluoro, no pneumothorax. Procedure: Patient placed in a Trendelenburg position. Prepped and draped in sterile fashion. I accessed the left subclavian vein in 1 pass and placed a J- wire through the needle. Fluoroscopy was used to confirm appropriate position. Having used local prior to starting the procedure patient had a area of anesthetized tissue. Through that I created a port pocket using 11 blade, electrocautery, blunt dissection. Placed the port with its pre measured catheter into the pocket and tunneled it short distance to the access point. From there a peel-away sheath was used placed the catheter into the vein without complication. Again position was confirmed with fluoroscopy showing the tip to be in the right atrium. Good venous return and flushed with heparin solution. I then tacked the port to the chest wall on 2 point using 0 Ethibond so they wi ll not turn her flipped inside the pocket. Then we closed the pocket in 2 layers using 3-0 Vicryl for subcutaneous interrupted closure followed by Stratafix 3-0 for skin closure. Steri-Strips and sterile dressings were placed. Patient was awakened, and taken to recovery in stable condition. Needle, instrument, sponge counts were correct. Blood loss: 10 mL Specimen: None Complications: none Post-operative Condition: stable Disposition: PACU
[2023-12-31 08:46] VITALS: BP 153/66; PULSE 62; RESP 12; TEMP 36.3; O2SAT 98
[2023-12-31 08:51] VITALS: BP 154/74; PULSE 63; RESP 18; O2SAT 96
[2023-12-31 08:56] VITALS: BP 142/65; PULSE 57; RESP 14; TEMP 36.2; O2SAT 97
[2023-12-31 09:01] VITALS: BP 140/68; PULSE 66; RESP 14; O2SAT 97
== END 2023-12-31 09:15 | disposition home or self-care (01) ==
PROVIDERS: PCP Family Medicine; Referring Provider Surgery; Visit Provider Surgery
PROC: (CPT 36561; principal; 2023-12-31 07:45)
DX: C56.2 Malignant neoplasm of left ovary (principal); Z90.710 Acquired absence of both cervix and uterus
CPT/HCPCS: 36561; 71045; 76000; C1788; J0171; J0690; J1100; J1644; J2405; J2704; J3010

== ENCOUNTER → 2024-01-16 06:48 | Outpatient (CLI) | payer MEDICARE, OTHER, SELFPAY ==
[2021-08-02 10:45] VITALS: BMI 24.4
--- NOTE | 2024-01-16 06:51 | DI.US.S_ITS ---
PROCEDURE: US PERIPH VENOUS LOW EXTREM LT INDICATIONS: PAIN LEFT CALF TECHNIQUE: Real-time imaging, as well as color and pulse Doppler interrogation, were performed of the lower extremity deep veins from the inguinal ligament to the popliteal fossa, with documentation of the visualized calf veins. COMPARISON: None. FINDINGS: Noncompressible thrombus is seen in the anterior tibial vein approximately 1 cm from popliteal vein. Otherwise the common femoral, femoral, popliteal, and the visualized calf veins are normally compressible, and free of intraluminal thrombus. Otherwise: and pulse Doppler demonstrate normal phasic intraluminal flow. Otherwise there is normal augmentation response to distal compression maneuver. IMPRESSION: Study positive for DVT in the left anterior tibial vein Dictated by: Thomas Gibbs M.D. on 01/16/2024 at 13:31 Approved by: Thomas Gibbs M.D. on 01/16/2024 at 13:33
== END ==
PROVIDERS: PCP Family Medicine; Referring Provider Internal Medicine Hematology & Oncology; Visit Provider Internal Medicine Hematology & Oncology
DX: I82.442 Acute embolism and thrombosis of left tibial vein (principal); C78.6 Secondary malignant neoplasm of retroperitoneum and peritoneum; Z85.43 Personal history of malignant neoplasm of ovary; Z85.44 Personal history of malignant neoplasm of other female genital organs
CPT/HCPCS: 93971

== ENCOUNTER 2024-01-16 07:36 | Emergency (ER) | payer MEDICARE, OTHER, SELFPAY ==
[2021-08-02 10:45] VITALS: BMI 24.4
[2024-01-16 07:43] VITALS: BP 143/67; PULSE 76; RESP 18; TEMP 37.1; O2SAT 95; BMI 27.3
--- NOTE | 2024-01-16 08:08 | ED_ITS ---
HPI - Extremity Problem General Chief complaint: Extremity Problem,Nontraumatic Stated complaint: deep vein thrombosis per tech Time Seen by Provider: 01/16/24 07:47 Source: patient Mode of arrival: Wheelchair History of Present Illness HPI Narrative: Patient is 73-year-old female with newly diagnosed ovarian cancer, not yet started on chemotherapy presenting today from DI after a positive DVT study. She apparently was seen at Oncology yesterday she was supposed to have her 1st chemotherapy however her left leg was noted to be swollen and she had reaccumulation of ascites. She did have a paracentesis that was confirmed cancerous. She says that she has been gaining 1-2 lb almost daily. She has some mild shortness of breath. She denies any pain fever cough or chills. She notes that her left leg is always more swollen than her right but her calf is definitely more tender than it has been previously. He is scheduled to have a paracentesis later this afternoon. Unfortunately with a positive DVT results they were unable to reach the provider who ordered the study she was therefore sent to the ED. Related Data Home Medications Medication Instructions Recorded Confirmed multivitamin 1 tab PO DAILY 05/21/18 12/31/23 vitamin B complex [B 1 tab PO DAILY 05/15/22 12/31/23 Complex-Vitamin B12] ascorbate calcium (vitamin C) 1 tab PO DAILY 05/15/23 12/31/23 d-mannose 1 tab PO BID 05/15/23 12/31/23 magnesium chloride 1 tab PO DAILY 05/15/23 12/31/23 omeprazole 20 mg capsule,delayed 20 mg PO DAILY 05/15/23 12/31/23 release Previous Rx's Medication Instructions Recorded tramadol 50 mg tablet 50 mg PO Q8H PRN pain #10 tabs 12/31/23 apixaban 5 mg (74 tabs) tablets in See Rx Instructions PO .COMPLEX 01/16/24 a dose pack ([facility] DVT-PE Treat #74 ea 30D Start) Allergies Allergy/AdvReac Type Severity Reaction Status Date / Time Calcium Channel Blocking Allergy Severe left side Verified 12/31/23 06:50 Agent Dilt of face, [CALCIUM CHANNEL BLOCKING removes AGENT DILT] calcium out of bones pravastatin Allergy Severe BACK AND Verified 12/31/23 06:50 RIB SPASMS midazolam [From VERSED] Allergy Mild custodial Verified 12/31/23 06:50 memory loss codeine [CODEINE] AdvReac Severe HALLUCINATI Verified 12/31/23 06:50 ONS diphenhydramine AdvReac Severe I'M Verified 12/31/23 06:50 [From BENADRYL] KNOCKED OUT FOR DAYS epinephrine [EPINEPHRINE] AdvReac Severe TREMORS, Verified 12/31/23 06:50 TACHYCARDIA ezetimibe AdvReac Severe back pain, Verified 12/31/23 06:50 dizziness Patient History Medical History Intermittent diarrhea Pelvic organ prolapse quantification stage 2 cystocele Pyelonephritis History of pyelonephritis Postmenopause atrophic vaginitis Ovarian cancer on left Recurrent urinary tract infection Cystocele Prolapse of female pelvic organs Osteoarthritis Osteopenia (2014) Chicken pox Congenital cataract Surgical History History of hysterectomy with bilateral oophorectomy History of gynecologic surgery (~10/05/19) Anesthesia History of bilateral tubal ligation Status post appendectomy (~1964) History of tonsillectomy (~1960) History of cataract removal with insertion of prosthetic lens (2016) History of knee replacement (10/02/16) History of knee replacement (11/22/15) S/P total knee arthroplasty Family History Father Heart disease High cholesterol Grandmother Age: 74 Heart disease Diabetes mellitus Brother Mental health problem Suicide Brother Diabetes mellitus Mother Pancreatic cancer Social History marital status: number of children: 2 household members: spouse lives independently: Yes caregiver/support person: No housing: house pets and animals: Yes education level: college marisa/congregational: Buddhist other: gardening,quilting,chickens seatbelt use: always water heater temp set < 120 deg: Yes working smoke detector in home: Yes fire extinguisher in home: Yes carbon monox detector in home: Yes firearms in home: No Smoking Status: Never smoker second hand exposure: No alcohol intake: never substance use type: does not use during the past year weight has: remained stable well-balanced diet: daily or most days daily servings fruits/ve-4 caffeine: No eating out: rarely or never Type(s) of exercise: walking frequency: daily duration: 60-90 minutes/day Smoking Status: Never smoker alcohol intake frequency: other Substance Use Type: does not use Exam Initial Vital Signs Initial Vital Signs: Vital Signs Temperature 98.7 F 01/16/24 07:43 Pulse Rate 76 01/16/24 07:43 Respiratory Rate 18 01/16/24 07:43 Blood Pressure 143/67 H 01/16/24 07:43 Pulse Oximetry 95 01/16/24 07:43 Oxygen Delivery Method Room Air 01/16/24 07:43 GENERAL: Alert very pleasant 73-year-old female and in no acute distress. HEENT: Head atraumatic,EOMI, pupils reactive, face symmetric, moist mucous membranes CARDIOVASCULAR: Regular rate and rhythm without murmurs, rubs or gallops. RESPIRATORY: Breath sounds equal bilaterally, no wheezes rales or rhonchi. ABDOMEN: Soft, positive fluid wave slightly distended nontender EXTREMITIES: Normal range of motion, no clubbing or edema. Neurovascularly intact Left leg significantly more swollen than the right tender posterior calf distal pedal pulse present NEUROLOGICAL: Alert and oriented x4. SKIN: Warm, dry, no laceration, no petechiae, no rashes or lesions. Procedures Paracentesis Indication: Ascites Procedure: therapeutic paracentesis Local Anesthetic: lidocaine 1% Amount of anesthesia used (mL): 3 Preparation: sterile prep and drape Fluid: clear Post Procedure Exam: awake, alert, normal BP, normal HR and normal SpO2 Patient Tolerated Procedure: Well and No complications Complications: none Course Orders Ordered: Discontinued Medications Apixaban (Apixaban 5 Mg Tablet) 10 mg PO NOW ONE Stop: 01/16/24 09:22 Last Admin: 01/16/24 09:40 Dose: 10 mg Documented By: VIANCA Heparin Sodium (Porcine) (Heparin 500 Unit/5 Ml Port Flush) 500 unit IV PRN PRN PRN Reason: Flush Last Admin: 01/16/24 09:51 Dose: 500 unit Documented By: VIANCA Vital Signs Vital signs: Vital Signs - 8 hr 01/16/24 07:43 01/16/24 08:20 Temperature 98.7 F Pulse Rate 76 Pulse Rate [Bilateral Dorsalis Pedis] 76 Respiratory Rate 18 Blood Pressure 143/67 H Pulse Oximetry 95 Oxygen Delivery Method Room Air [facility] Extremity (Nontraumatic) Lab Data 01/16/24 08:17 01/16/24 08:17 Labs: Lab Results 01/16/24 Range/Units 08:17 WBC 7.9 (4.5-11.0) X10^3/uL RBC 4.10 (4.0-5.2) X10^6/uL Hgb 12.2 (12.0-16.0) g/dL Hct 36.2 (36-46) % MCV 88.2 (80-100) fL MCH 29.7 (26-34) PG MCHC 33.7 (30-36) % RDW 12.5 (11.6-14.8) % Plt Count 278 (150-400) X10^3/uL Neut % (Auto) 73.7 (50-75) % Lymph % (Auto) 12.7 L (25-40) % [place] % (Auto) 11.8 (3-14) % Eos % (Auto) 1.1 L (2-4) % Baso % (Auto) 0.7 (0-2) % Neut # (Auto) 5800 (9285-9804) /uL Lymph # (Auto) 1000 L (9700-1280) /uL [place] # (Auto) 900 (0-900) /uL Eos # (Auto) 100 (0-450) /uL Baso # (Auto) 100 (0-100) /uL PT 14.9 H (9.4-12.5) SECONDS INR 1.3 (0.9-1.3) APTT 38 H (25.1-36.5) SECONDS Sodium 133 L (137-145) mmol/L Potassium 3.6 (3.4-5.1) mmol/L Chloride 100 (98-107) mmol/L Carbon Dioxide 24 (22-32) mmol/L BUN 9 (7-17) mg/dL Creatinine 0.54 (0.52-1.04) mg/dL Estimated GFR > 60 (>60) mL/min BUN/Creatinine Ratio 16.7 (6-22) Glucose 99 (80-110) mg/dL Calcium 9.0 (8.4-10.2) mg/dL Total Bilirubin 0.7 (0.2-1.3) mg/dL AST 31 (14-36) IU/L ALT 20 (<35) IU/L Alkaline Phosphatase 66 (38-126) U/L Total Protein 6.9 (6.3-8.2) g/dL Albumin 3.7 (3.5-5.0) g/dL Globulin 3.2 (1.7-4.1) g/dL Albumin/Globulin Ratio 1.2 (1.0-2.8) Imaging Data US - abdomen: Radiologist's Impression: PROCEDURE: US ABDOMEN LIMITED INDICATIONS: KELSEY FOR PARACENTESIS TECHNIQUE: Real-time focused scanning was performed of the abdomen, with image documentation. COMPARISON: None. FINDINGS: The right lower quadrant skin was marked at the deepest pocket. From the center of the pocket to the skin measures 8.2 cm. IMPRESSION: Right lower quadrant skin marked for paracentesis under ultrasound guidance. Dictated by: Gayatri Cintron M.D. on 01/16/2024 at 9:10 US - DVT: Radiologist's Impression: PROCEDURE: US PERIPH VENOUS LOW EXTREM LT INDICATIONS: PAIN LEFT CALF TECHNIQUE: Real-time imaging, as well as color and pulse Doppler interrogation, were performed of the lower extremity deep veins from the inguinal ligament to the popliteal fossa, with documentation of the visualized calf veins. COMPARISON: None. FINDINGS: Noncompressible thrombus is seen in the anterior tibial vein approximately 1 cm from popliteal vein. Otherwise the common femoral, femoral, popliteal, and the visualized calf veins are normally compressible, and free of intraluminal thrombus. Otherwise: and pulse Doppler demonstrate normal phasic intraluminal flow. Otherwise there is normal augmentation response to distal compression maneuver. IMPRESSION: Study positive for DVT in the left anterior tibial vein Dictated by: Thomas Gibbs M.D. on 01/16/2024 at 13:31 MDM Narrative Medical decision making narrative: Patient is 73-year-old female with known ovarian cancer presenting today from outpatient GI with a positive DVT study. She is supposed to get a paracentesis today as well. He is able to do the paracentesis in the emergency department without any issue or complication. Removed about 4,000mL She is followed closely with oncology. She was started on Eliquis. She has no contraindications for anticoagulation we discussed risks and benefits. Blood work reviewed Imaging reviewed Discharge Plan Departure Patient Disposition: Home Clinical Impression: DVT (deep venous thrombosis), Ascites, Ovarian cancer Instructions: Deep Vein Thrombosis, Abdominal Paracentesis Activity Restrictions/Additional Instructions: *You have been diagnosed with DVT and paracentesis *What to do: At this time you do have a blood clot in your leg. You were started on Eliquis is an anticoagulation which makes your blood. Please take as directed. Avoid falling or high-risk activities. If you should start bleeding know that you will need to apply pressure for longer than normal you may also try ice to help stop bleeding *Continue to take medications as directed Eliquis 10 mg twice a day for 7 days and 5 mg twice a day *Follow up with your primary care provider in 2-3 days or call [phone] *Return to ER if you should have increasing abdominal pain fever chest pain shortness of breath or any new, worsening or concerning symptoms Prescriptions: New Eliquis DVT-PE Treat 30D Start 5 mg (74 tabs) tablets,dose pack See Rx Instructions .ROUTE .COMPLEX Qty: 74 0RF Rx Instructions: orally per package directions No Action multivitamin tablet 1 tab PO DAILY tramadol 50 mg tablet 50 mg PO Q8H PRN (Reason: pain) Qty: 10 0RF vitamin B complex [B Complex-Vitamin B12] 1 tab PO DAILY ascorbate calcium (vitamin C) 1 tab PO DAILY d-mannose 1 tab PO BID magnesium chloride 1 tab PO DAILY omeprazole 20 mg capsule,delayed release(DR/EC) 20 mg PO DAILY Referrals: Olya Solares MD [Primary Care Provider] - Stand Alone Forms: Patient Portal/API
[2024-01-16 08:20] VITALS: PULSE 76
--- NOTE | 2024-01-16 08:23 | PC.NURSE ---
Pt came to the ED today after coming in today for outpt US. US + for DVT in LLE and pt referred to ED by US tech. Pt also scheduled for paracentisis this afternoon, which will be done in ED today. Pt states that she feels like it is difficult to breath while laying down and that she is having mild pain in her LLE. 3+ non pitting edema noted in LLE. Bilateral pedal pulses strong. Pt a&ox4. Has extensive female CA hx and has not been able to undergo chemo tx due to ongoing medical issues. at bedside.
[2024-01-16 08:27] LABS: Add Manual Diff / Slide Review NO; Basophils Absolute Auto 100 /uL (0-100); Basophils Percent Auto 0.7 % (0-2); Eosinophils Absolute Auto 100 /uL (0-450); Eosinophils Percent Auto 1.1 % (2-4); Hematocrit 36.2 % (36-46); Hemoglobin 12.2 g/dL (12.0-16.0); Lymphocytes Absolute Auto 1000 /uL (1100-4500); Lymphocytes Percent Auto 12.7 % (25-40); Mean Corpuscular HGB Conc 33.7 % (30-36); Mean Corpuscular Hemoglobin 29.7 PG (26-34); Mean Corpuscular Volume 88.2 fL (80-100); Monocytes Absolute Auto 900 /uL (0-900); Monocytes Percent Auto 11.8 % (3-14); Neutrophils Absolute Auto 5800 /uL (1500-7000); Neutrophils Percent Auto 73.7 % (50-75); Platelet Count 278 X10^3/uL (150-400); Red Cell Distribution Width 12.5 % (11.6-14.8); White Blood Cell Count 7.9 X10^3/uL (4.5-11.0)
[2024-01-16 08:35] LABS: INR 1.3 (0.9-1.3); Prothrombin Time 14.9 SECONDS (9.4-12.5)
[2024-01-16 08:37] LABS: PTT Partial Thromboplastin Tim 38 SECONDS (25.1-36.5)
[2024-01-16 08:42] LABS: Alanine Aminotransferase 20 IU/L (<35); Albumin 3.7 g/dL (3.5-5.0); Albumin Globulin Ratio 1.2 (1.0-2.8); Alkaline Phosphatase 66 U/L (38-126); Aspartate Aminotransferase 31 IU/L (14-36); BUN Creatinine Ratio 16.7 (6-22); Bilirubin Total 0.7 mg/dL (0.2-1.3); Blood Urea Nitrogen 9 mg/dL (7-17); Carbon Dioxide 24 mmol/L (22-32); Chloride 100 mmol/L (98-107); Estimated Glomerular Filt Rate > 60 mL/min (>60); Globulin 3.2 g/dL (1.7-4.1); Glucose 99 mg/dL (80-110); HEMOLYSIS < 15 (0-50); Potassium 3.6 mmol/L (3.4-5.1); Sodium 133 mmol/L (137-145); Total Protein 6.9 g/dL (6.3-8.2)
[2024-01-16] MEDS: APIXABAN 5 MG TABLET 10 MG PO (09:40)
[2024-01-16 11:00] VITALS: BP 147/84; PULSE 69; RESP 20; TEMP 37; O2SAT 100
== END 2024-01-16 09:59 | disposition home or self-care (01) ==
PROVIDERS: Emergency Provider Emergency Medicine; PCP Family Medicine
DX: I82.402 Acute embolism and thrombosis of unspecified deep veins of left lower extremity (principal); R18.8 Other ascites; C56.2 Malignant neoplasm of left ovary; I82.442 Acute embolism and thrombosis of left tibial vein; C78.6 Secondary malignant neoplasm of retroperitoneum and peritoneum; Z85.43 Personal history of malignant neoplasm of ovary; Z85.44 Personal history of malignant neoplasm of other female genital organs
CPT/HCPCS: 49082; 76705; 80053; 85025; 85610; 85730; 93971; 99284; J1642

== ENCOUNTER 2024-03-10 16:32 | Emergency (ER) | payer MEDICARE, OTHER, SELFPAY ==
[2021-08-02 10:45] VITALS: BMI 24.4
[2024-03-10 16:43] VITALS: BP 178/82; PULSE 83; RESP 20; TEMP 36.6; O2SAT 100; BMI 25.6
[2024-03-10 17:29] LABS: INR 1.4 (0.9-1.3); Prothrombin Time 15.8 SECONDS (9.4-12.5)
[2024-03-10 17:32] LABS: Add Manual Diff / Slide Review NO; Basophils Absolute Auto 0 /uL (0-100); Basophils Percent Auto 0.5 % (0-2); Eosinophils Absolute Auto 100 /uL (0-450); Eosinophils Percent Auto 0.7 % (2-4); Hematocrit 34.3 % (36-46); Hemoglobin 11.4 g/dL (12.0-16.0); Lymphocytes Absolute Auto 1000 /uL (1100-4500); Lymphocytes Percent Auto 10.4 % (25-40); Mean Corpuscular HGB Conc 33.3 % (30-36); Mean Corpuscular Hemoglobin 30.1 PG (26-34); Mean Corpuscular Volume 90.1 fL (80-100); Monocytes Absolute Auto 500 /uL (0-900); Neutrophils Absolute Auto 8300 /uL (1500-7000); Neutrophils Percent Auto 83.4 % (50-75); PTT Partial Thromboplastin Tim 36 SECONDS (25.1-36.5); Platelet Count 223 X10^3/uL (150-400); Red Blood Cell Count 3.81 X10^6/uL (4.0-5.2); Red Cell Distribution Width 16.7 % (11.6-14.8); White Blood Cell Count 9.9 X10^3/uL (4.5-11.0)
[2024-03-10 17:35] LABS: Alanine Aminotransferase 28 IU/L (<35); Albumin 4.5 g/dL (3.5-5.0); Albumin Globulin Ratio 1.4 (1.0-2.8); Alkaline Phosphatase 134 U/L (38-126); Aspartate Aminotransferase 36 IU/L (14-36); BUN Creatinine Ratio 17.5 (6-22); Bilirubin Total 0.4 mg/dL (0.2-1.3); Blood Urea Nitrogen 11 mg/dL (7-17); Calcium 9.6 mg/dL (8.4-10.2); Carbon Dioxide 28 mmol/L (22-32); Chloride 102 mmol/L (98-107); Estimated Glomerular Filt Rate > 60 mL/min (>60); Globulin 3.2 g/dL (1.7-4.1); Glucose 98 mg/dL (80-110); HEMOLYSIS < 15 (0-50); Potassium 4.2 mmol/L (3.4-5.1); Sodium 135 mmol/L (137-145); Total Protein 7.7 g/dL (6.3-8.2)
[2024-03-10 17:43] VITALS: BP 185/86
[2024-03-10] MEDS: LIDOCAINE 1% W/EPI 1 ML SUBCUT (18:02)
--- NOTE | 2024-03-10 18:11 | ED_ITS ---
HPI - Recheck/Abnormal Lab/Rx General Chief Complaint: Recheck/Abnormal Lab/Rx Stated Complaint: states needs paracenthesis Time Seen by Provider: 03/10/24 17:44 Source: patient Mode of arrival: Ambulatory History of Present Illness HPI narrative: 73-year-old female with history of ovarian cancer with malignant ascites presents requiring paracentesis. She states that her abdomen is distended, causing her shortness of breath, she was unable to lay down flat without significant discomfort. Last paracentesis in December. Related Data Home Medications Medication Instructions Recorded Confirmed multivitamin 1 tab PO DAILY 05/21/18 12/31/23 vitamin B complex [B 1 tab PO DAILY 05/15/22 12/31/23 Complex-Vitamin B12] ascorbate calcium (vitamin C) 1 tab PO DAILY 05/15/23 12/31/23 d-mannose 1 tab PO BID 05/15/23 12/31/23 magnesium chloride 1 tab PO DAILY 05/15/23 12/31/23 omeprazole 20 mg capsule,delayed 20 mg PO DAILY 05/15/23 12/31/23 release Previous Rx's Medication Instructions Recorded tramadol 50 mg tablet 50 mg PO Q8H PRN pain #10 tabs 12/31/23 apixaban 5 mg (74 tabs) tablets in See Rx Instructions PO .COMPLEX 01/16/24 a dose pack ([facility] DVT-PE Treat #74 ea 30D Start) Allergies Allergy/AdvReac Type Severity Reaction Status Date / Time Calcium Channel Blocking Allergy Severe left side Verified 12/31/23 06:50 Agent Dilt of face, [CALCIUM CHANNEL BLOCKING removes AGENT DILT] calcium out of bones pravastatin Allergy Severe BACK AND Verified 12/31/23 06:50 RIB SPASMS midazolam [From VERSED] Allergy Mild intermediate Verified 12/31/23 06:50 memory loss codeine [CODEINE] AdvReac Severe HALLUCINATI Verified 12/31/23 06:50 ONS diphenhydramine AdvReac Severe I'M Verified 12/31/23 06:50 [From BENADRYL] KNOCKED OUT FOR DAYS epinephrine [EPINEPHRINE] AdvReac Severe TREMORS, Verified 12/31/23 06:50 TACHYCARDIA ezetimibe AdvReac Severe back pain, Verified 12/31/23 06:50 dizziness Review of Systems Review of Systems Narrative: Negative except as noted above Patient History Medical History Intermittent diarrhea Pelvic organ prolapse quantification stage 2 cystocele Pyelonephritis History of pyelonephritis Postmenopause atrophic vaginitis Ovarian cancer on left Recurrent urinary tract infection Cystocele Prolapse of female pelvic organs Osteoarthritis Osteopenia (2014) Chicken pox Congenital cataract Surgical History History of hysterectomy with bilateral oophorectomy History of gynecologic surgery (~10/05/19) Anesthesia History of bilateral tubal ligation Status post appendectomy (~1964) History of tonsillectomy (~1960) History of cataract removal with insertion of prosthetic lens (2016) History of knee replacement (10/02/16) History of knee replacement (11/22/15) S/P total knee arthroplasty Family History Father Heart disease High cholesterol Grandmother Age: 74 Heart disease Diabetes mellitus Brother Mental health problem Suicide Brother Diabetes mellitus Mother Pancreatic cancer Social History marital status: number of children: 2 household members: spouse lives independently: Yes caregiver/support person: No housing: house pets and animals: Yes education level: college marisa/bahai: [employer] other: gardening,quilting,chickens seatbelt use: always water heater temp set < 120 deg: Yes working smoke detector in home: Yes fire extinguisher in home: Yes carbon monox detector in home: Yes firearms in home: No Smoking Status: Never smoker second hand exposure: No alcohol intake: never substance use type: does not use during the past year weight has: remained stable well-balanced diet: daily or most days daily servings fruits/ve-4 caffeine: No eating out: rarely or never Type(s) of exercise: walking frequency: daily duration: 60-90 minutes/day Smoking Status: Never smoker alcohol intake frequency: other Substance Use Type: does not use Exam Initial Vital Signs Initial Vital Signs: Vital Signs Temperature 97.8 F 03/10/24 16:43 Pulse Rate 83 03/10/24 16:43 Respiratory Rate 20 03/10/24 16:43 Blood Pressure 178/82 H 03/10/24 16:43 Pulse Oximetry 100 03/10/24 16:43 Oxygen Delivery Method Room Air 03/10/24 16:43 Const: Awake, alert, no acute distress, nontoxic appearing GI: Distended, positive fluid wave, no tenderness to palpation Skin: Warm, Dry, intact, no rashes Neuro: AO x3, CN II-XII grossly intact, moves all extremities Procedures Paracentesis Time Out Performed: Yes Indication: Ascites Procedure: therapeutic paracentesis Local Anesthetic: lidocaine 1% and with epi Amount of anesthesia used (mL): 5 Preparation: sterile prep and drape and Blade used to make jun in skin Fluid: other (brownish/clear) Post Procedure Exam: awake, alert, normal BP, normal HR and normal SpO2 Patient Tolerated Procedure: Well and No complications Complications: none Course Orders Ordered: ED Orders 03/10/24 17:04 Complete Blood Count AUTO DIFF Stat Comprehensive Metabolic Panel Stat PTT Partial Thromboplastin Andres Stat Prothrombin Time INR Stat Discontinued Medications Lidocaine/Epinephrine (Lidocaine 1% W/Epi) 1 ml SUBCUT NOW ONE Stop: 03/10/24 17:49 Last Admin: 03/10/24 18:02 Dose: 1 ml Documented By: VIANCA Vital Signs Vital signs: Vital Signs - 8 hr 03/10/24 16:43 03/10/24 17:43 03/10/24 18:22 Temperature 97.8 F Pulse Rate 83 Respiratory Rate 20 Blood Pressure 178/82 H 185/86 H 178/85 H Pulse Oximetry 100 Oxygen Delivery Method Room Air 03/10/24 19:12 Temperature 97 F L Pulse Rate 80 Respiratory Rate 20 Blood Pressure 162/71 H Pulse Oximetry 98 Oxygen Delivery Method Room Air MDM - Recheck/Abnormal Lab/Rx Differential Diagnosis Differential diagnosis: Likely encounter for medication refill, encounter for wound recheck and encounter for recheck of burn Lab Data 03/10/24 17:04 03/10/24 17:04 Labs: Lab Results 03/10/24 Range/Units 17:04 WBC 9.9 (4.5-11.0) X10^3/uL RBC 3.81 L (4.0-5.2) X10^6/uL Hgb 11.4 L (12.0-16.0) g/dL Hct 34.3 L (36-46) % MCV 90.1 (80-100) fL MCH 30.1 (26-34) PG MCHC 33.3 (30-36) % RDW 16.7 H (11.6-14.8) % Plt Count 223 (150-400) X10^3/uL Neut % (Auto) 83.4 H (50-75) % Lymph % (Auto) 10.4 L (25-40) % [place] % (Auto) 5.0 (3-14) % Eos % (Auto) 0.7 L (2-4) % Baso % (Auto) 0.5 (0-2) % Neut # (Auto) 8300 H (2440-5609) /uL Lymph # (Auto) 1000 L (8551-1607) /uL [place] # (Auto) 500 (0-900) /uL Eos # (Auto) 100 (0-450) /uL Baso # (Auto) 0 (0-100) /uL PT 15.8 H (9.4-12.5) SECONDS INR 1.4 H (0.9-1.3) APTT 36 (25.1-36.5) SECONDS Sodium 135 L (137-145) mmol/L Potassium 4.2 (3.4-5.1) mmol/L Chloride 102 (98-107) mmol/L Carbon Dioxide 28 (22-32) mmol/L BUN 11 (7-17) mg/dL Creatinine 0.63 (0.52-1.04) mg/dL Estimated GFR > 60 (>60) mL/min BUN/Creatinine Ratio 17.5 (6-22) Glucose 98 (80-110) mg/dL Calcium 9.6 (8.4-10.2) mg/dL Total Bilirubin 0.4 (0.2-1.3) mg/dL AST 36 (14-36) IU/L ALT 28 (<35) IU/L Alkaline Phosphatase 134 H (38-126) U/L Total Protein 7.7 (6.3-8.2) g/dL Albumin 4.5 (3.5-5.0) g/dL Globulin 3.2 (1.7-4.1) g/dL Albumin/Globulin Ratio 1.4 (1.0-2.8) MDM Narrative Medical decision making narrative: Patient requesting therapeutic paracentesis due to malignant ascites. 5 L of brownish clear fluid removed. Patient reported significant improvement in her abdominal distention and she felt much better. Instructed to follow up with her oncologist Discharge Plan Departure Patient Disposition: Home Clinical Impression: Ascites Qualifiers: Ascites type: malignant Qualified Code(s): R18.0 - Malignant ascites Instructions: DI for Abdominal Paracentesis Activity Restrictions/Additional Instructions: Follow up as needed with your oncologist Prescriptions: No Action multivitamin tablet 1 tab PO DAILY tramadol 50 mg tablet 50 mg PO Q8H PRN (Reason: pain) Qty: 10 0RF Eliquis DVT-PE Treat 30D Start 5 mg (74 tabs) tablets,dose pack See Rx Instructions .ROUTE .COMPLEX Qty: 74 0RF Rx Instructions: orally per package directions vitamin B complex [B Complex-Vitamin B12] 1 tab PO DAILY ascorbate calcium (vitamin C) 1 tab PO DAILY d-mannose 1 tab PO BID magnesium chloride 1 tab PO DAILY omeprazole 20 mg capsule,delayed release(DR/EC) 20 mg PO DAILY Referrals: Olya Solares MD [Primary Care Provider] - Stand Alone Forms: Patient Portal/API
[2024-03-10 18:22] VITALS: BP 178/85
[2024-03-10 19:12] VITALS: BP 162/71; PULSE 80; RESP 20; TEMP 36.1; O2SAT 98
== END 2024-03-10 19:20 | disposition home or self-care (01) ==
PROVIDERS: Emergency Medicine; Emergency Provider Emergency Medicine; PCP Family Medicine
DX: C56.2 Malignant neoplasm of left ovary (principal); R18.0 Malignant ascites
CPT/HCPCS: 36415; 49082; 80053; 85025; 85610; 85730; 99283; 99284

== ENCOUNTER → 2024-04-24 12:37 | Outpatient (CLI) | payer MEDICARE, OTHER, SELFPAY ==
[2021-08-02 10:45] VITALS: BMI 24.4
--- NOTE | 2024-04-24 12:43 | DI.RAD.S_ITS ---
PROCEDURE: XR CHEST 2V INDICATIONS: cough TECHNIQUE: 2 views of the chest were acquired. COMPARISON: [facility], CR, XR CHEST 1V, 12/31/2023, 8:49. FINDINGS: Surgical changes and devices: Left-sided Port-A-Cath in position. Lungs and pleura: Lungs are clear. No pleural effusions or pneumothorax. Mediastinum: Mediastinal contours are normal. Heart size is normal. Bones and chest wall: No suspicious bony abnormalities. Soft tissues appear unremarkable. IMPRESSION: No acute cardiopulmonary abnormality is seen. Approved by: Severo Gentile M.D. on 04/24/2024 at 16:14
== END ==
PROVIDERS: PCP Family Medicine; Referring Provider Family Medicine; Visit Provider Family Medicine
DX: R05.9 Cough, unspecified (principal)
CPT/HCPCS: 71046

== ENCOUNTER → 2024-04-27 14:31 | Outpatient (CLI) | payer MEDICARE, OTHER, SELFPAY ==
[2021-08-02 10:45] VITALS: BMI 24.4
[2024-04-27 17:12] LABS: Appearance Urine UA SL CLOUDY; Bilirubin Urine UA NEGATIVE (NEGATIVE); Color Urine UA YELLOW; Glucose Urine UA NEGATIVE (Negative); Ketones Urine UA NEGATIVE (NEGATIVE); Leukocyte Esterase Urine UA 1+ (NEGATIVE); Nitrite Urine UA POSITIVE (Negative); Occult Blood Urine UA TRACE-INTACT (Negative); Protein Urine UA NEGATIVE (Negative); Specific Gravity Urine UA <=1.005 (1.000-1.035); Urobilinogen Urine UA 0.2 E.U./dL (0.2)
[2024-04-27 17:25] LABS: Bacteria Urine Few (2-10); Culture Indicated Urine Specimen Cultured; RBC Urine 1-5/HPF (0-5/HPF); Squamous Epithelial Cell Urine 0-1 /HPF (0-5/HPF); Urine Volume 10mL (spun); WBC Urine 30-100/HPF (0-5/HPF)
== END ==
PROVIDERS: PCP Family Medicine; Referring Provider Family Medicine; Visit Provider Family Medicine
DX: R30.0 Dysuria (principal)
CPT/HCPCS: 81001; 87086

== ENCOUNTER → 2024-05-10 10:06 | Outpatient (CLI) | payer MEDICARE, OTHER, SELFPAY ==
[2021-08-02 10:45] VITALS: BMI 24.4
== END ==
PROVIDERS: PCP Family Medicine; Visit Provider Physician Assistant Surgical
DX: R10.9 Unspecified abdominal pain (principal)
CPT/HCPCS: 87077; 87086; 87186

== ENCOUNTER → 2024-05-14 10:25 | Outpatient (CLI) | payer MEDICARE, OTHER, SELFPAY ==
[2021-08-02 10:45] VITALS: BMI 24.4
== END ==
PROVIDERS: PCP Family Medicine; Visit Provider Urology
DX: N39.0 Urinary tract infection, site not specified (principal)
CPT/HCPCS: 87086

== ENCOUNTER → 2024-07-13 11:06 | Outpatient (CLI) | payer MEDICARE, OTHER, SELFPAY ==
[2021-08-02 10:45] VITALS: BMI 24.4
[2024-07-13 12:20] LABS: BUN Creatinine Ratio 18.7 (6-22); Blood Urea Nitrogen 17 mg/dL (7-17); Calcium 9.6 mg/dL (8.4-10.2); Carbon Dioxide 27 mmol/L (22-32); Chloride 99 mmol/L (98-107); Estimated Glomerular Filt Rate > 60 mL/min (>60); Glucose 76 mg/dL (80-110); HEMOLYSIS < 15 (0-50); Potassium 4.4 mmol/L (3.4-5.1); Sodium 133 mmol/L (137-145)
== END ==
PROVIDERS: PCP Family Medicine; Referring Provider Family Medicine; Visit Provider Family Medicine
DX: R03.0 Elevated blood-pressure reading, without diagnosis of hypertension (principal); E87.1 Hypo-osmolality and hyponatremia
CPT/HCPCS: 36415; 80048

== ENCOUNTER → 2024-09-18 09:12 | Outpatient (CLI) | payer MEDICARE, OTHER, SELFPAY ==
[2021-08-02 10:45] VITALS: BMI 24.4
--- NOTE | 2024-09-18 09:15 | DI.US.S_ITS ---
PROCEDURE: US PARACENTESIS INDICATIONS: ascites TECHNIQUE: The indications, alternatives, benefits, risks, and complications of the procedure were explained to the patient. Written informed consent was obtained and placed in the chart. The abdomen and pelvis were examined sonographically, and an appropriate site was chosen for paracentesis. The skin was prepared and draped in the usual sterile fashion, and 1% lidocaine was infiltrated from the skin down through the peritoneal surface. A 19-gauge catheter-covered needle was then introduced into the peritoneal space, the catheter was advanced and the needle was withdrawn, and thereafter peritoneal fluid was withdrawn. The catheter was then removed and a dressing was applied. The fluid was discarded if the clinician did not order diagnostic testing of the fluid. COMPARISON: None. FINDINGS: Access site: Right upper quadrant Needle: One-Step centesis catheter with introducer needle. Fluid volume and description: 2100 mL of clear yellow fluid Fluid sent for diagnostic testing: N/A Medications: 1% lidocaine for local anaesthesia. Complications: None. IMPRESSION: Successful ultrasound-guided paracentesis. Dictated by: Pepe Connell M.D. on 09/18/2024 at 13:13 Approved by: Pepe Connell M.D. on 09/18/2024 at 13:13
[2024-09-18 10:14] LABS: Hematocrit 35.6 % (36-46); Hemoglobin 12.1 g/dL (12.0-16.0); Mean Corpuscular Hemoglobin 30.8 PG (26-34); Mean Corpuscular Volume 90.6 fL (80-100); Platelet Count 320 X10^3/uL (150-400); Red Blood Cell Count 3.93 X10^6/uL (4.0-5.2); Red Cell Distribution Width 12.9 % (11.6-14.8); White Blood Cell Count 4.4 X10^3/uL (4.5-11.0)
[2024-09-18 11:06] LABS: INR 1.7 (0.9-1.3); Prothrombin Time 20.1 SECONDS (9.4-12.5)
== END ==
PROVIDERS: PCP Family Medicine; Referring Provider Family Medicine; Visit Provider Family Medicine
DX: R18.8 Other ascites (principal)
CPT/HCPCS: 36415; 49083; 85027; 85610

== ENCOUNTER → 2024-10-27 11:38 | Outpatient (CLI) | payer MEDICARE, OTHER, SELFPAY ==
[2021-08-02 10:45] VITALS: BMI 24.4
[2024-10-27 12:58] LABS: Add Manual Diff / Slide Review NO; Basophils Absolute Auto 0 /uL (0-100); Basophils Percent Auto 0.6 % (0-2); Eosinophils Absolute Auto 100 /uL (0-450); Hematocrit 35.9 % (36-46); Hemoglobin 11.9 g/dL (12.0-16.0); Lymphocytes Absolute Auto 800 /uL (1100-4500); Lymphocytes Percent Auto 11.9 % (25-40); Mean Corpuscular HGB Conc 33.2 % (30-36); Mean Corpuscular Hemoglobin 30.3 PG (26-34); Monocytes Absolute Auto 1000 /uL (0-900); Monocytes Percent Auto 16.2 % (3-14); Neutrophils Absolute Auto 4400 /uL (1500-7000); Neutrophils Percent Auto 69.3 % (50-75); Platelet Count 322 X10^3/uL (150-400); Red Blood Cell Count 3.94 X10^6/uL (4.0-5.2); Red Cell Distribution Width 14.5 % (11.6-14.8); White Blood Cell Count 6.4 X10^3/uL (4.5-11.0)
[2024-10-27 13:29] LABS: INR 1.3 (0.9-1.3); Prothrombin Time 14.5 SECONDS (9.4-12.5)
[2024-10-27 13:36] LABS: BUN Creatinine Ratio 16.3 (6-22); Blood Urea Nitrogen 14 mg/dL (7-17); Calcium 9.3 mg/dL (8.4-10.2); Carbon Dioxide 30 mmol/L (22-32); Chloride 93 mmol/L (98-107); Estimated Glomerular Filt Rate > 60 mL/min (>60); Glucose 88 mg/dL (80-110); HEMOLYSIS < 15 (0-50); Sodium 130 mmol/L (137-145)
== END ==
PROVIDERS: PCP Family Medicine; Referring Provider Family Medicine; Visit Provider Family Medicine
DX: C56.2 Malignant neoplasm of left ovary (principal); R18.8 Other ascites
CPT/HCPCS: 36415; 80048; 85025; 85610

== ENCOUNTER → 2024-10-30 14:09 | Outpatient (CLI) | payer MEDICARE, OTHER, SELFPAY ==
[2021-08-02 10:45] VITALS: BMI 24.4
--- NOTE | 2024-10-30 14:11 | DI.US.S_ITS ---
PROCEDURE: US PARACENTESIS INDICATIONS: ascites TECHNIQUE: The indications, alternatives, benefits, risks, and complications of the procedure were explained to the patient. Written informed consent was obtained and placed in the chart. The abdomen and pelvis were examined sonographically, and an appropriate site was chosen for paracentesis. The skin was prepared and draped in the usual sterile fashion, and 1% lidocaine was infiltrated from the skin down through the peritoneal surface. A 19-gauge catheter-covered needle was then introduced into the peritoneal space, the catheter was advanced and the needle was withdrawn, and thereafter peritoneal fluid was withdrawn. The catheter was then removed and a dressing was applied. The fluid was discarded if the clinician did not order diagnostic testing of the fluid. COMPARISON: [facility], PARACENTESIS, 09/18/2024, 9:45. FINDINGS: Access site: Right lower quadrant Needle: One-Step centesis catheter with introducer needle. Fluid volume and description: 4800 mL of clear yellow ascitic fluid Fluid sent for diagnostic testing: Therapeutic only. Medications: 1% lidocaine for local anaesthesia. Complications: None. IMPRESSION: Ultrasound-guided right lower quadrant therapeutic paracentesis. Additional discussion was had with the patient regarding the potential option for placement of a tunneled peritoneal drain (PleurX / PeritX catheter placement) in the future should there be recurrence large volume ascites. Dictated by: Musa Juarez M.D. on 10/30/2024 at 16:10 Approved by: Musa Juarez M.D. on 10/30/2024 at 16:18
== END ==
PROVIDERS: PCP Family Medicine; Referring Provider Family Medicine; Visit Provider Family Medicine
DX: C56.2 Malignant neoplasm of left ovary (principal); R18.8 Other ascites
CPT/HCPCS: 49083

== ENCOUNTER → 2024-12-01 12:49 | Outpatient (CLI) | payer MEDICARE, OTHER, SELFPAY ==
[2021-08-02 10:45] VITALS: BMI 24.4
[2024-12-01 13:37] LABS: INR 1.4 (0.9-1.3); Prothrombin Time 15.7 SECONDS (9.4-12.5)
== END ==
PROVIDERS: PCP Family Medicine; Referring Provider Family Medicine; Visit Provider Family Medicine
DX: R18.8 Other ascites (principal); Z01.812 Encounter for preprocedural laboratory examination; C56.2 Malignant neoplasm of left ovary
CPT/HCPCS: 85610

== ENCOUNTER → 2024-12-02 10:48 | Outpatient (CLI) | payer MEDICARE, OTHER, SELFPAY ==
[2021-08-02 10:45] VITALS: BMI 24.4
--- NOTE | 2024-12-02 10:50 | DI.US.S_ITS ---
PROCEDURE: US PARACENTESIS INDICATIONS: Ascites TECHNIQUE: The indications, alternatives, benefits, risks, and complications of the procedure were explained to the patient. Written informed consent was obtained and placed in the chart. The abdomen and pelvis were examined sonographically, and an appropriate site was chosen for paracentesis. The skin was prepared and draped in the usual sterile fashion, and 1% lidocaine was infiltrated from the skin down through the peritoneal surface. A 19-gauge catheter-covered needle was then introduced into the peritoneal space, the catheter was advanced and the needle was withdrawn, and thereafter peritoneal fluid was withdrawn. The catheter was then removed and a dressing was applied. The fluid was discarded if the clinician did not order diagnostic testing of the fluid. COMPARISON: [facility], , PARACENTESIS, 10/30/2024, 14:27. FINDINGS: Access site: Right lower quadrant Needle: One-Step centesis catheter with introducer needle. Fluid volume and description: 5000, clear straw-colored Fluid sent for diagnostic testing: None Medications: 1% lidocaine for local anaesthesia. Complications: None. IMPRESSION: Successful ultrasound-guided therapeutic paracentesis. 5 L removed. Dictated by: Anant Chicas M.D. on 12/02/2024 at 17:02 Approved by: Anant Chicas M.D. on 12/02/2024 at 17:03
== END ==
LOC: US 10:49
PROVIDERS: PCP Family Medicine; Referring Provider Family Medicine; Visit Provider Family Medicine
DX: R18.8 Other ascites (principal)
CPT/HCPCS: 49083

== ENCOUNTER 2024-12-14 12:26 | Emergency (ER) | payer MEDICARE, OTHER, SELFPAY ==
[2021-08-02 10:45] VITALS: BMI 24.4
[2024-12-14] VITALS (7 sets, daily range): BP systolic 117–150; BP diastolic 70–85; PULSE 66–86; RESP 16–18; TEMP 36.3–36.9; O2SAT 92–99; BMI 26.2
--- NOTE | 2024-12-14 13:26 | PC.NURSE ---
Pt here for paracentesis. abdomen is swollen and firm. pt states that she needs to be drained.
[2024-12-14 14:24] LABS: Add Manual Diff / Slide Review NO; Basophils Absolute Auto 100 /uL (0-100); Basophils Percent Auto 1.3 % (0-2); Eosinophils Absolute Auto 0 /uL (0-450); Eosinophils Percent Auto 0.9 % (2-4); Hematocrit 33.1 % (36-46); Hemoglobin 11.4 g/dL (12.0-16.0); Lymphocytes Absolute Auto 600 /uL (1100-4500); Mean Corpuscular HGB Conc 34.5 % (30-36); Mean Corpuscular Hemoglobin 30.6 PG (26-34); Mean Corpuscular Volume 88.8 fL (80-100); Monocytes Absolute Auto 900 /uL (0-900); Monocytes Percent Auto 20.1 % (3-14); Neutrophils Absolute Auto 2900 /uL (1500-7000); Neutrophils Percent Auto 64.7 % (50-75); Platelet Count 413 X10^3/uL (150-400); Red Blood Cell Count 3.73 X10^6/uL (4.0-5.2); Red Cell Distribution Width 14.5 % (11.6-14.8); White Blood Cell Count 4.5 X10^3/uL (4.5-11.0)
[2024-12-14 14:25] LABS: INR 1.5 (0.9-1.3); Prothrombin Time 17.2 SECONDS (9.4-12.5)
[2024-12-14 14:29] LABS: Alanine Aminotransferase 14 IU/L (<35); Albumin 3.7 g/dL (3.5-5.0); Albumin Globulin Ratio 1.2 (1.0-2.8); Alkaline Phosphatase 60 U/L (38-126); Aspartate Aminotransferase 35 IU/L (14-36); BUN Creatinine Ratio 11.8 (6-22); Bilirubin Total 0.3 mg/dL (0.2-1.3); Blood Urea Nitrogen 8 mg/dL (7-17); Calcium 9.1 mg/dL (8.4-10.2); Carbon Dioxide 30 mmol/L (22-32); Chloride 90 mmol/L (98-107); Estimated Glomerular Filt Rate > 60 mL/min (>60); Glucose 97 mg/dL (80-110); HEMOLYSIS < 15 (0-50); Potassium 3.1 mmol/L (3.4-5.1); Sodium 125 mmol/L (137-145); Total Protein 6.7 g/dL (6.3-8.2)
[2024-12-14 14:48] LABS: PTT Partial Thromboplastin Tim 173 SECONDS (25.1-36.5)
--- NOTE | 2024-12-14 15:42 | DI.US.S_ITS ---
PROCEDURE: US ABDOMEN LIMITED INDICATIONS: michael for para please TECHNIQUE: Real-time focused scanning was performed of the abdomen to marked for paracentesis, with image documentation. COMPARISON: [facility], , US ABDOMEN LIMITED, 01/16/2024, 8:17. FINDINGS: Right lower quadrant region marked at the deepest pocket. 6.5 centimeters from the skin surface to the center of the pocket IMPRESSION: Right lower quadrant region marked at the deepest pocket. 6.5 centimeters from the skin surface to the center of the pocket. Dictated by: Catrachito Anders M.D. on 12/14/2024 at 16:34 Approved by: Catrachito Anders M.D. on 12/14/2024 at 16:35
--- NOTE | 2024-12-14 15:42 | DI.CT.S_ITS ---
PROCEDURE: CT CHEST ABD PEL W CON INDICATIONS: ovarian cancer ascites TECHNIQUE: After the administration of intravenous contrast, 5 mm thick sections acquired from the lung apices to the symphysis. 5 mm coronal and sagittal reformats were performed, with additional 7 mm MIP reformats through the lungs. For radiation dose reduction, the following was used: automated exposure control, adjustment of mA and/or kV according to patient size. COMPARISON: [facility], CT, CT CHEST ABD PEL W CON, 11/30/2023, 13:27. [facility], CT, CT CHEST ABDOMEN PELVIS WITH CONTRAST, 08/12/2024, 12:28. FINDINGS: Image quality: Excellent. CHEST: Lower Neck: Prominent left supraclavicular lymph nodes measuring up to 8 millimeters in short axis are again noted (2). Thyroid: No thyroid nodules which require sonographic follow up, per consensus guidelines. Axillae: No enlarged lymph nodes. Chest Wall: Left chest wall Port-A-Cath. Lungs and Pleura: Large right pleural effusion with adjacent atelectasis versus consolidation. Heart: Heart size is normal. No pericardial effusion. Thoracic Vessels: The aorta and pulmonary arteries demonstrate normal size. Mediastinum and Ana: No enlarged lymph nodes. Esophagus: No wall thickening. Moderate hiatal hernia. ABDOMEN: Liver: No solid mass. Gallbladder: No radiopaque gallstones or wall thickening. Biliary ducts: No biliary dilation. Pancreas: No ductal dilation. Spleen: Size is within normal limits. Adrenal Glands: No adrenal nodules. Kidneys and Ureters: No hydronephrosis. No solid mass. No complex renal cystic lesion which requires follow up. Subcentimeter hypodensities, too small to accurately characterize. Stomach and Bowel: Normal colonic caliber, without significant wall thickening. Diverticulosis without evidence of acute diverticulitis. Peritoneum: Moderate to large volume ascites is increased compared to prior. No free air. Ventral Wall: No significant ventral hernia. Abdominal Nodes: No retroperitoneal or mesenteric adenopathy by size criteria. Vessels: Aorta and inferior vena cava are normal in size. Atherosclerotic vascular calcifications. Partially calcified splenic artery aneurysm measuring 1 centimeter is redemonstrated. PELVIS: Pelvic Organs: Hysterectomy. Bladder: No bladder wall thickening, accounting for underdistention. Pelvic Nodes: No enlarged lymph nodes. Miscellaneous: No inguinal hernias are seen. Bones: No aggressive osseous abnormality. IMPRESSION: 1. Moderate to large volume ascites is increased compared to prior. 2. Large right pleural effusion with adjacent atelectasis versus consolidation is increased from prior. 3. Prominent left supraclavicular lymph nodes are redemonstrated. 4. Redemonstration of partially calcified splenic artery aneurysm measuring approximately 1 centimeter, attention on follow-up. Dictated by: Catrachito Anders M.D. on 12/14/2024 at 16:40 Approved by: Catrachito Anders M.D. on 12/14/2024 at 16:48
--- NOTE | 2024-12-14 15:46 | ED.ABDPAIN ---
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 She has recurrent ascites. Sounds as though she is failing treatment. She just had a paracentesis done December 02 for 5 L of fluid was drained. Now she feels like she is swollen just as much if not more. Feels like she can not breathe. She feels just generally uncomfortable. She is followed at [facility] for chemotherapy. Related Data Home Medications Medication Instructions Recorded Confirmed multivitamin 1 tab PO DAILY 05/21/18 11/11/24 vitamin B complex [B 1 tab PO DAILY 05/15/22 11/11/24 Complex-Vitamin B12] ascorbate calcium (vitamin C) 1 tab PO DAILY 05/15/23 11/11/24 d-mannose 1 tab PO BID 05/15/23 11/11/24 magnesium chloride 1 tab PO DAILY 05/15/23 11/11/24 omeprazole 20 mg capsule,delayed 20 mg PO DAILY 05/15/23 11/11/24 release Previous Rx's Medication Instructions Recorded apixaban 5 mg (74 tabs) tablets in See Rx Instructions PO .COMPLEX 01/16/24 a dose pack ([employer] DVT-PE Treat #74 ea 30D Start) chlorthalidone 25 mg tablet 25 mg PO DAILY #90 tabs 09/25/24 metoprolol succinate 25 mg 25 mg PO DAILY #90 tabs 09/25/24 tablet,extended release 24 hr Allergies Allergy/AdvReac Type Severity Reaction Status Date / Time Calcium Channel Blocking Allergy Severe left side Verified 11/11/24 14:02 Agent Dilt of face, [CALCIUM CHANNEL BLOCKING removes AGENT DILT] calcium out of bones pravastatin Allergy Severe BACK AND Verified 11/11/24 14:02 RIB SPASMS midazolam [From VERSED] Allergy Mild group home Verified 11/11/24 14:02 memory loss codeine [CODEINE] AdvReac Severe HALLUCINATI Verified 11/11/24 14:02 ONS diphenhydramine AdvReac Severe I'M Verified 11/11/24 14:02 [From BENADRYL] KNOCKED OUT FOR DAYS epinephrine [EPINEPHRINE] AdvReac Severe TREMORS, Verified 11/11/24 14:02 TACHYCARDIA ezetimibe AdvReac Severe back pain, Verified 11/11/24 14:02 dizziness Patient History Medical History (Updated 12/14/24 @ 17:28 by Mariama Doll DO) Incomplete emptying of bladder Intermittent diarrhea Pelvic organ prolapse quantification stage 2 cystocele Pyelonephritis History of pyelonephritis Postmenopause atrophic vaginitis Ovarian cancer on left Recurrent urinary tract infection Cystocele Prolapse of female pelvic organs Osteoarthritis Osteopenia (2014) Chicken pox Congenital cataract Surgical History History of hysterectomy with bilateral oophorectomy History of gynecologic surgery (~10/05/19) Anesthesia History of bilateral tubal ligation Status post appendectomy (~1964) History of tonsillectomy (~1960) History of cataract removal with insertion of prosthetic lens (2016) History of knee replacement (10/02/16) History of knee replacement (11/22/15) S/P total knee arthroplasty Family History Father Heart disease High cholesterol Grandmother Age: 75 Heart disease Diabetes mellitus Brother Mental health problem Suicide Brother Diabetes mellitus Mother Pancreatic cancer Social History marital status: number of children: 2 household members: spouse lives independently: Yes caregiver/support person: No housing: house pets and animals: Yes education level: college marisa/christian: Pentecostal other: gardening,quilting,chickens seatbelt use: always water heater temp set < 120 deg: Yes working smoke detector in home: Yes fire extinguisher in home: Yes carbon monox detector in home: Yes firearms in home: No Smoking Status: Never smoker second hand exposure: No alcohol intake: never substance use type: does not use during the past year weight has: remained stable well-balanced diet: daily or most days daily servings fruits/ve-4 caffeine: No eating out: rarely or never Type(s) of exercise: walking frequency: daily duration: 60-90 minutes/day Smoking Status: Never smoker alcohol intake frequency: other Exam Initial Vital Signs Initial Vital Signs: Vital Signs Temperature 97.3 F L 12/14/24 12:32 Pulse Rate 86 12/14/24 12:32 Respiratory Rate 18 12/14/24 12:32 Blood Pressure 145/70 H 12/14/24 12:32 Pulse Oximetry 99 12/14/24 12:32 Oxygen Delivery Method Room Air 12/14/24 12:32 GENERAL: Alert pleasant 74 female and in no acute distress. HEENT: Head atraumatic,EOMI, pupils reactive, face symmetric, moist mucous membranes CARDIOVASCULAR: Regular rate and rhythm without murmurs, rubs or gallops. RESPIRATORY: Breath sounds equal bilaterally, no wheezes rales or rhonchi. ABDOMEN: Soft,+ fluid wave mildly tender EXTREMITIES: Normal range of motion, no clubbing or edema. Neurovascularly intact NEUROLOGICAL: Alert and oriented x4.Normal gait and speech. SKIN: Warm, dry, no laceration, no petechiae, no rashes or lesions. Course Orders Ordered: ED Orders 12/14/24 13:20 Complete Blood Count AUTO DIFF Stat Comprehensive Metabolic Panel Stat PT [Prothrombin Time INR] Stat PTT Partial Thromboplastin Andres Stat 12/14/24 15:42 CT chest abd pel w con Stat US abdomen limited Stat Discontinued Medications Albumin Human (Albuminar) 25 gm in 100 mls @ 60 mls/hr IV NOW ONE Stop: 12/14/24 17:22 Last Admin: 12/14/24 16:13 Dose: Not Given Documented By: RB Vital Signs Vital signs: Vital Signs - 8 hr 12/14/24 12:32 12/14/24 13:07 12/14/24 13:08 Temperature 97.3 F L Pulse Rate 86 82 Respiratory Rate 18 Blood Pressure 145/70 H 141/70 H Pulse Oximetry 99 98 Oxygen Delivery Method Room Air 12/14/24 13:08 12/14/24 13:30 12/14/24 13:30 Temperature Pulse Rate 79 74 Respiratory Rate Blood Pressure 136/75 Pulse Oximetry 98 97 Oxygen Delivery Method 12/14/24 14:04 12/14/24 14:06 12/14/24 14:06 Temperature Pulse Rate 82 82 84 Respiratory Rate 16 Blood Pressure 150/76 H Pulse Oximetry 92 95 94 Oxygen Delivery Method Room Air 12/14/24 18:00 Temperature 98.4 F Pulse Rate 66 Respiratory Rate 18 Blood Pressure 117/85 Pulse Oximetry 99 Oxygen Delivery Method Room Air MDM - Abdominal Pain Lab Data 12/14/24 13:20 12/14/24 13:20 Labs: Lab Results 12/14/24 Range/Units 13:20 WBC 4.5 (4.5-11.0) X10^3/uL RBC 3.73 L (4.0-5.2) X10^6/uL Hgb 11.4 L (12.0-16.0) g/dL Hct 33.1 L (36-46) % MCV 88.8 (80-100) fL MCH 30.6 (26-34) PG MCHC 34.5 (30-36) % RDW 14.5 (11.6-14.8) % Plt Count 413 H (150-400) X10^3/uL Neut % (Auto) 64.7 (50-75) % Lymph % (Auto) 13.0 L (25-40) % [place] % (Auto) 20.1 H (3-14) % Eos % (Auto) 0.9 L (2-4) % Baso % (Auto) 1.3 (0-2) % Neut # (Auto) 2900 (1293-2969) /uL Lymph # (Auto) 600 L (3919-1808) /uL [place] # (Auto) 900 (0-900) /uL Eos # (Auto) 0 (0-450) /uL Baso # (Auto) 100 (0-100) /uL PT 17.2 H (9.4-12.5) SECONDS INR 1.5 H (0.9-1.3) APTT 173 H* (25.1-36.5) SECONDS Sodium 125 L (137-145) mmol/L Potassium 3.1 L (3.4-5.1) mmol/L Chloride 90 L (98-107) mmol/L Carbon Dioxide 30 (22-32) mmol/L BUN 8 (7-17) mg/dL Creatinine 0.68 (0.52-1.04) mg/dL Estimated GFR > 60 (>60) mL/min BUN/Creatinine Ratio 11.8 (6-22) Glucose 97 (80-110) mg/dL Calcium 9.1 (8.4-10.2) mg/dL Total Bilirubin 0.3 (0.2-1.3) mg/dL AST 35 (14-36) IU/L ALT 14 (<35) IU/L Alkaline Phosphatase 60 (38-126) U/L Total Protein 6.7 (6.3-8.2) g/dL Albumin 3.7 (3.5-5.0) g/dL Globulin 3.0 (1.7-4.1) g/dL Albumin/Globulin Ratio 1.2 (1.0-2.8) Imaging Data CT scan - abdomen/pelvis: Radiologist's Impression: PROCEDURE: CT CHEST ABD PEL W CON INDICATIONS: ovarian cancer ascites TECHNIQUE: After the administration of intravenous contrast, 5 mm thick sections acquired from the lung apices to the symphysis. 5 mm coronal and sagittal reformats were performed, with additional 7 mm MIP reformats through the lungs. For radiation dose reduction, the following was used: automated exposure control, adjustment of mA and/or kV according to patient size. COMPARISON: [facility], CT, CT CHEST ABD PEL W CON, 11/30/2023, 13:27. [facility], CT, CT CHEST ABDOMEN PELVIS WITH CONTRAST, 08/12/2024, 12:28. FINDINGS: Image quality: Excellent. CHEST: Lower Neck: Prominent left supraclavicular lymph nodes measuring up to 8 millimeters in short axis are again noted (01/18). Thyroid: No thyroid nodules which require sonographic follow up, per consensus guidelines. Axillae: No enlarged lymph nodes. Chest Wall: Left chest wall Port-A-Cath. Lungs and Pleura: Large right pleural effusion with adjacent atelectasis versus consolidation. Heart: Heart size is normal. No pericardial effusion. Thoracic Vessels: The aorta and pulmonary arteries demonstrate normal size. Mediastinum and Ana: No enlarged lymph nodes. Esophagus: No wall thickening. Moderate hiatal hernia. ABDOMEN: Liver: No solid mass. Gallbladder: No radiopaque gallstones or wall thickening. Biliary ducts: No biliary dilation. Pancreas: No ductal dilation. Spleen: Size is within normal limits. Adrenal Glands: No adrenal nodules. Kidneys and Ureters: No hydronephrosis. No solid mass. No complex renal cystic lesion which requires follow up. Subcentimeter hypodensities, too small to accurately characterize. Stomach and Bowel: Normal colonic caliber, without significant wall thickening. Diverticulosis without evidence of acute diverticulitis. Peritoneum: Moderate to large volume ascites is increased compared to prior. No free air. Ventral Wall: No significant ventral hernia. Abdominal Nodes: No retroperitoneal or mesenteric adenopathy by size criteria. Vessels: Aorta and inferior vena cava are normal in size. Atherosclerotic vascular calcifications. Partially calcified splenic artery aneurysm measuring 1 centimeter is redemonstrated. PELVIS: Pelvic Organs: Hysterectomy. Bladder: No bladder wall thickening, accounting for underdistention. Pelvic Nodes: No enlarged lymph nodes. Miscellaneous: No inguinal hernias are seen. Bones: No aggressive osseous abnormality. IMPRESSION: 1. Moderate to large volume ascites is increased compared to prior. 2. Large right pleural effusion with adjacent atelectasis versus consolidation is increased from prior. 3. Prominent left supraclavicular lymph nodes are redemonstrated. 4. Redemonstration of partially calcified splenic artery aneurysm measuring approximately 1 centimeter, attention on follow-up. Dictated by: Catrachito Anders M.D. on 12/14/2024 at 16:40 US - abdomen: Radiologist's Impression: PROCEDURE: US ABDOMEN LIMITED INDICATIONS: michael for para please TECHNIQUE: Real-time focused scanning was performed of the abdomen to marked for paracentesis, with image documentation. COMPARISON: [facility], , US ABDOMEN LIMITED, 01/16/2024, 8:17. FINDINGS: Right lower quadrant region marked at the deepest pocket. 6.5 centimeters from the skin surface to the center of the pocket IMPRESSION: Right lower quadrant region marked at the deepest pocket. 6.5 centimeters from the skin surface to the center of the pocket. Dictated by: Catrachito Anders M.D. 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 Pertinent findings: PTT 173, INR 1.5 CBC shows no leukocytosis or anemia platelets are 413 CMP does show hyponatremia sodium 125 potassium 3.1 chloride 90 creatinine 0.68 Bilirubin liver enzymes within normal limits Imaging studies independently reviewed: CT chest abdomen pelvis does show moderate to large ascites with a large right pleural effusion left supraclavicular lymph nodes Ultrasound marked with right lower quadrant ascites Consultations: Radiologist on-call I discussed elevated PTT of 173 on Eliquis and doing a paracentesis says that is probably too high no paracentesis today can return tomorrow and hold Eliquis Treatments: none Discussion: Patient is 74-year-old female here with a rare ovarian cancer here with abdominal ascites she also looks like she has a pleural effusion as well. Complaining of fullness. However due to her Eliquis use and significant elevation and PTT I did speak with Radiology who did not recommend doing a paracentesis today recommended holding it and having her come back tomorrow. I have explained the plan to her she understands and will return tomorrow morning Discharge Plan Departure Patient Disposition: Home Clinical Impression: Abdominal ascites Activity Restrictions/Additional Instructions: So nice to see you again. You are both doing a great job! Hold Eliquis tonight and tomorrow take all other medications Supplements BCQ and vitamin D may or may not be good options for your neuropathy Return to ED in the morning for paracentesis Prescriptions: No Action metoprolol succinate 25 mg tablet extended release 24 hr 25 mg PO DAILY Qty: 90 0RF Hold Instructions: Home Medication placed on hold at Doctor's office chlorthalidone 25 mg tablet 25 mg PO DAILY Qty: 90 0RF multivitamin tablet 1 tab PO DAILY Eliquis DVT-PE Treat 30D Start 5 mg (74 tabs) tablets,dose pack See Rx Instructions .ROUTE .COMPLEX Qty: 74 0RF Rx Instructions: orally per package directions vitamin B complex [B Complex-Vitamin B12] 1 tab PO DAILY ascorbate calcium (vitamin C) 1 tab PO DAILY d-mannose 1 tab PO BID magnesium chloride 1 tab PO DAILY omeprazole 20 mg capsule,delayed release(DR/EC) 20 mg PO DAILY Referrals: Olya Solares MD [Primary Care Provider] - Stand Alone Forms: Patient Portal/API/Survey
== END 2024-12-14 18:01 | disposition home or self-care (01) ==
PROVIDERS: Emergency Provider Emergency Medicine; PCP Family Medicine
DX: R18.8 Other ascites (principal); C56.2 Malignant neoplasm of left ovary
CPT/HCPCS: 36415; 71260; 74177; 76705; 80053; 85025; 85610; 85730; 99283; 99284; Q9967

== ENCOUNTER → 2024-12-15 13:59 | Outpatient (CLI) | payer MEDICARE, OTHER, SELFPAY ==
[2021-08-02 10:45] VITALS: BMI 24.4
[2024-12-15 14:49] LABS: INR 1.4 (0.9-1.3); Prothrombin Time 15.7 SECONDS (9.4-12.5)
== END ==
PROVIDERS: PCP Family Medicine; Referring Provider Family Medicine; Visit Provider Family Medicine
DX: Z01.812 Encounter for preprocedural laboratory examination (principal); R18.8 Other ascites; C56.2 Malignant neoplasm of left ovary
CPT/HCPCS: 36415; 85610

== ENCOUNTER → 2025-01-07 12:23 | Outpatient (CLI) | payer MEDICARE, OTHER, SELFPAY ==
[2021-08-02 10:45] VITALS: BMI 24.4
[2025-01-07 13:26] LABS: INR 1.3 (0.9-1.3); Prothrombin Time 14.5 SECONDS (9.4-12.5)
[2025-01-07 13:37] LABS: BUN Creatinine Ratio 14.5 (6-22); Blood Urea Nitrogen 12 mg/dL (7-17); Carbon Dioxide 29 mmol/L (22-32); Chloride 97 mmol/L (98-107); Estimated Glomerular Filt Rate > 60 mL/min (>60); Glucose 101 mg/dL (80-110); HEMOLYSIS < 15 (0-50); Potassium 3.7 mmol/L (3.4-5.1); Sodium 132 mmol/L (137-145)
== END ==
PROVIDERS: PCP Family Medicine; Referring Provider Family Medicine; Visit Provider Family Medicine
DX: Z01.812 Encounter for preprocedural laboratory examination (principal); C56.2 Malignant neoplasm of left ovary; R18.8 Other ascites; Z92.21 Personal history of antineoplastic chemotherapy
CPT/HCPCS: 36415; 80048; 85610

== ENCOUNTER 2025-01-11 12:00 | Outpatient (CLI) | payer MEDICARE, OTHER, SELFPAY ==
[2021-08-02 10:45] VITALS: BMI 24.4
--- NOTE | 2025-01-11 12:03 | DI.US.S_ITS ---
PROCEDURE: US PARACENTESIS INDICATIONS: PRN ascitis s/p chemo TECHNIQUE: The indications, alternatives, benefits, risks, and complications of the procedure were explained to the patient. Written informed consent was obtained and placed in the chart. The abdomen and pelvis were examined sonographically, and an appropriate site was chosen for paracentesis. The skin was prepared and draped in the usual sterile fashion, and 1% lidocaine was infiltrated from the skin down through the peritoneal surface. A 19-gauge catheter-covered needle was then introduced into the peritoneal space, the catheter was advanced and the needle was withdrawn, and thereafter peritoneal fluid was withdrawn. The catheter was then removed and a dressing was applied. The fluid was discarded if the clinician did not order diagnostic testing of the fluid. COMPARISON: [facility], , PARACENTESIS, 12/02/2024, 11:10. FINDINGS: Access site: Right lower quadrant Needle: One-Step centesis catheter with introducer needle. Fluid volume and description: 5 liters, clear Fluid sent for diagnostic testing: No Medications: 1% lidocaine for local anaesthesia. Complications: None. IMPRESSION: Successful ultrasound-guided paracentesis. Dictated by: Indio Cantu M.D. on 01/11/2025 at 14:54 Approved by: Indio Cantu M.D. on 01/11/2025 at 14:54
[2025-01-11 12:30] VITALS: BP 116/65; PULSE 65; RESP 18; TEMP 36.6; O2SAT 99
[2025-01-11 13:05] VITALS: PULSE 65; RESP 17; O2SAT 99
== END 2025-01-11 13:15 | disposition home or self-care (01) ==
PROVIDERS: PCP Family Medicine; Visit Provider Radiology Diagnostic Radiology
DX: R18.8 Other ascites (principal); Z92.21 Personal history of antineoplastic chemotherapy
CPT/HCPCS: 49083

== ENCOUNTER → 2025-01-29 11:28 | Outpatient (CLI) | payer MEDICARE, OTHER, SELFPAY ==
[2021-08-02 10:45] VITALS: BMI 24.4
[2025-01-29 12:01] LABS: INR 1.2 (0.9-1.3); Prothrombin Time 13.2 SECONDS (9.4-12.5)
[2025-01-29 12:07] LABS: BUN Creatinine Ratio 20.9 (6-22); Blood Urea Nitrogen 14 mg/dL (7-17); Calcium 8.8 mg/dL (8.4-10.2); Carbon Dioxide 28 mmol/L (22-32); Chloride 99 mmol/L (98-107); Estimated Glomerular Filt Rate > 60 mL/min (>60); Glucose 104 mg/dL (80-110); HEMOLYSIS < 15 (0-50); Potassium 3.9 mmol/L (3.4-5.1); Sodium 135 mmol/L (137-145)
== END ==
PROVIDERS: PCP Family Medicine; Referring Provider Family Medicine; Visit Provider Family Medicine
DX: Z01.812 Encounter for preprocedural laboratory examination (principal); R18.8 Other ascites; Z92.21 Personal history of antineoplastic chemotherapy; C56.2 Malignant neoplasm of left ovary
CPT/HCPCS: 36415; 80048; 85610

== ENCOUNTER 2025-02-01 07:38 | Outpatient (CLI) | payer MEDICARE, OTHER, SELFPAY ==
[2021-08-02 10:45] VITALS: BMI 24.4
--- NOTE | 2025-02-01 | DI.RAD.S_ITS ---
PROCEDURE: XR CHEST 1V INDICATIONS: POST THORACENTESIS TECHNIQUE: One view of the chest was acquired. COMPARISON: [facility], CR, XR CHEST 2V, 04/24/2024, 13:02. [facility], CR, XR CHEST 1V, 12/31/2023, 8:49. FINDINGS: Surgical changes and devices: Left Port-A-Cath with the distal tip at the cavoatrial junction. Lungs and pleura: Interval decrease in right pleural effusion, with a subpulmonic component. Associated parenchymal atelectasis of the right middle and right lower lobes. No left pleural effusion or focal consolidation. No pneumothorax. Mediastinum: Mediastinal contours appear normal. Heart size is normal. Bones and chest wall: No suspicious bony lesions. Overlying soft tissues appear unremarkable. IMPRESSION: Status post right thoracentesis without pneumothorax. Dictated by: Frankie Lawrence M.D. on 02/01/2025 at 10:43 Approved by: Frankie Lawrence M.D. on 02/01/2025 at 10:49
--- NOTE | 2025-02-01 07:40 | DI.US.S_ITS ---
PROCEDURE: US PARACENTESIS INDICATIONS: PRN ascitis s/p chemo TECHNIQUE: The indications, alternatives, benefits, risks, and complications of the procedure were explained to the patient. Written informed consent was obtained and placed in the chart. The abdomen and pelvis were examined sonographically, and an appropriate site was chosen for paracentesis. The skin was prepared and draped in the usual sterile fashion, and 1% lidocaine was infiltrated from the skin down through the peritoneal surface. A 19-gauge catheter-covered needle was then introduced into the peritoneal space, the catheter was advanced and the needle was withdrawn, and thereafter peritoneal fluid was withdrawn. The catheter was then removed and a dressing was applied. The fluid was discarded if the clinician did not order diagnostic testing of the fluid. COMPARISON: [facility], PARACENTESIS, 01/11/2025, 12:23. [facility], PARACENTESIS, 12/02/2024, 11:10. [facility], PARACENTESIS, 10/30/2024, 14:27. [facility], PARACENTESIS, 09/18/2024, 9:45. FINDINGS: Access site: Right lower quadrant Needle: One-Step centesis catheter with introducer needle. Fluid volume and description: 3.7 liters of clear, yellow fluid Fluid sent for diagnostic testing: No Medications: 1% lidocaine for local anaesthesia. Complications: None. IMPRESSION: Successful ultrasound-guided paracentesis. Dictated by: Frankie Lawrence M.D. on 02/01/2025 at 10:50 Approved by: Frankie Lawrence M.D. on 02/01/2025 at 10:51
--- NOTE | 2025-02-01 09:33 | DI.US.S_ITS ---
PROCEDURE: US THORACENTESIS THERAPUTIC INDICATIONS: fluid, right pleural space TECHNIQUE: The indications, alternatives, benefits, risks, and complications of the procedure were explained to the patient. Written informed consent was obtained and placed in the chart. The chest was examined sonographically, and an appropriate site was chosen for thoracentesis. The skin was prepared and draped in the usual sterile fashion, and 1% lidocaine was infiltrated from the skin down through the pleural surface. A 19-gauge catheter-covered needle was then introduced into the pleural space, the catheter was advanced and the needle was withdrawn, and thereafter pleural fluid was aspirated. The catheter was then removed and a dressing was applied. COMPARISON: [facility], CT, CT CHEST ABD PEL W CON, 12/14/2024, 15:50. [facility], CR, XR CHEST 1V, 02/01/2025, 10:26. FINDINGS: Access site: Right hemithorax. Needle: One-Step centesis catheter with introducer needle. Fluid volume and description: 2.4 liters of clear, shell fluid Fluid sent for diagnostic testing: No Medications: 1% lidocaine for local anaesthesia. Complications: None; post-procedural chest radiograph does not show a pneumothorax. IMPRESSION: Successful ultrasound-guided right thoracentesis. Dictated by: Frankie Lawrence M.D. on 02/01/2025 at 12:22 Approved by: Frankie Lawrence M.D. on 02/01/2025 at 12:24
--- NOTE | 2025-02-01 09:41 | PC.NURSE ---
When pt arrived to dept, she c/o SOB. With knowing pt's hx of needing a thoracentesis, Dr. Lawrence and tech Ellen were asked to assess pt's lungs prior to scheduled paracentesis. Per Dr. Lawrence, it is indicated that pt will benefit from a throa today as well. Pt's PC contacted and an order was placed. Pt agress with POC and new concent obtained for procedure. Per Dr. Lawrence, no VS or PIV access needed. Pt A&Ox4, has used the restroom, eating crackers and drinking water. NAD. Para had zero complications, using this same encounter for thora.
--- NOTE | 2025-02-01 10:41 | PC.NURSE ---
Pt tolerated procedure well. Pt given thorough d/c instructions by Dr. Lawrence and this RN gave pt written d/c instructions. Pt drinking water, NAD. Dr. Lawrence reviewed post thora CXR and cleared pt for d/c.
== END 2025-02-01 10:50 | disposition home or self-care (01) ==
PROVIDERS: PCP Family Medicine; Referring Provider Family Medicine; Visit Provider Family Medicine
DX: R18.8 Other ascites (principal); Z92.21 Personal history of antineoplastic chemotherapy; J90 Pleural effusion, not elsewhere classified
CPT/HCPCS: 32555; 49083; 71045

== ENCOUNTER 2025-02-17 07:32 | Outpatient (CLI) | payer MEDICARE, OTHER, SELFPAY ==
[2021-08-02 10:45] VITALS: BMI 24.4
--- NOTE | 2025-02-17 07:34 | DI.US.S_ITS ---
PROCEDURE: US ABDOMEN LIMITED INDICATIONS: PRN ascitis s/p chemo TECHNIQUE: Real-time focused scanning was performed of the abdomen, with image documentation. COMPARISON: [facility], , US ABDOMEN LIMITED, 12/14/2024, 15:56. FINDINGS: Mild fluid. IMPRESSION: Mild fluid with paracentesis deferred. Dictated by: Colleen Askew M.D. on 02/17/2025 at 13:07 Approved by: Colleen Askew M.D. on 02/17/2025 at 13:08
[2025-02-17 08:00] VITALS: BP 137/65; PULSE 82; RESP 16; TEMP 36.3; O2SAT 98
[2025-02-17 09:03] VITALS: BP 137/72; PULSE 81; RESP 16; O2SAT 97
== END 2025-02-17 09:10 | disposition home or self-care (01) ==
PROVIDERS: PCP Family Medicine; Referring Provider Family Medicine; Visit Provider Family Medicine
DX: R18.8 Other ascites (principal); Z92.21 Personal history of antineoplastic chemotherapy
CPT/HCPCS: 76705

== ENCOUNTER → 2025-03-29 12:21 | Outpatient (CLI) | payer MEDICARE, OTHER, SELFPAY ==
[2021-08-02 10:45] VITALS: BMI 24.4
[2025-03-29 12:55] LABS: INR 1.3 (0.9-1.3); Prothrombin Time 15.1 SECONDS (9.4-12.5)
[2025-03-29 13:03] LABS: BUN Creatinine Ratio 27.9 (6-22); Blood Urea Nitrogen 19 mg/dL (7-17); Carbon Dioxide 26 mmol/L (22-32); Chloride 99 mmol/L (98-107); Estimated Glomerular Filt Rate > 60 mL/min (>60); Glucose 93 mg/dL (70-99); HEMOLYSIS < 15 (0-50); Potassium 4.1 mmol/L (3.4-5.1); Sodium 135 mmol/L (137-145)
== END ==
PROVIDERS: PCP Family Medicine; Referring Provider Family Medicine; Visit Provider Family Medicine
DX: Z01.812 Encounter for preprocedural laboratory examination (principal); C56.2 Malignant neoplasm of left ovary; R18.8 Other ascites; Z92.21 Personal history of antineoplastic chemotherapy
CPT/HCPCS: 36415; 80048; 85610

== ENCOUNTER 2025-03-31 07:36 | Outpatient (CLI) | payer MEDICARE, OTHER, SELFPAY ==
[2021-08-02 10:45] VITALS: BMI 24.4
--- NOTE | 2025-03-31 07:37 | DI.US.S_ITS ---
PROCEDURE: US PARACENTESIS INDICATIONS: ascites TECHNIQUE: The indications, alternatives, benefits, risks, and complications of the procedure were explained to the patient. Written informed consent was obtained and placed in the chart. The abdomen and pelvis were examined sonographically, and an appropriate site was chosen for paracentesis. The skin was prepared and draped in the usual sterile fashion, and 1% lidocaine was infiltrated from the skin down through the peritoneal surface. A 19-gauge catheter-covered needle was then introduced into the peritoneal space, the catheter was advanced and the needle was withdrawn, and thereafter peritoneal fluid was withdrawn. The catheter was then removed and a dressing was applied. The fluid was discarded if the clinician did not order diagnostic testing of the fluid. COMPARISON: [facility], PARACENTESIS, 02/01/2025, 8:28. FINDINGS: Access site: Right lower quadrant Needle: One-Step paracentesis catheter with introducer needle. Fluid volume and description: 5.0 L clear yellow ascites fluid Fluid sent for diagnostic testing: No Medications: 1% lidocaine for local anaesthesia. Complications: None. IMPRESSION: Successful ultrasound-guided paracentesis with removal of 5.0 L of ascites fluid. Dictated by: Chino Carrero M.D. on 03/31/2025 at 12:16 Approved by: Chino Carrero M.D. on 03/31/2025 at 12:18
[2025-03-31 08:27] VITALS: BP 164/84; PULSE 89; RESP 18; TEMP 36.5; O2SAT 98
[2025-03-31 08:45] VITALS: BP 154/61; PULSE 79; RESP 18; O2SAT 97
[2025-03-31 09:10] VITALS: BP 160/81; PULSE 81; RESP 18; O2SAT 96
== END 2025-03-31 09:20 | disposition home or self-care (01) ==
LOC: US 07:37
PROVIDERS: PCP Family Medicine; Referring Provider Family Medicine; Visit Provider Family Medicine
DX: R18.8 Other ascites; Z92.21 Personal history of antineoplastic chemotherapy
CPT/HCPCS: 49083

== ENCOUNTER → 2025-04-26 12:28 | Outpatient (CLI) | payer MEDICARE, OTHER, SELFPAY ==
[2021-08-02 10:45] VITALS: BMI 24.4
[2025-04-26 14:09] LABS: INR 1.3 (0.9-1.3); Prothrombin Time 15.1 SECONDS (9.4-12.5)
== END ==
PROVIDERS: PCP Family Medicine; Referring Provider Family Medicine; Visit Provider Family Medicine
DX: Z01.812 Encounter for preprocedural laboratory examination (principal); R18.8 Other ascites; C56.2 Malignant neoplasm of left ovary
CPT/HCPCS: 36415; 85610

== ENCOUNTER 2025-04-28 09:24 | Outpatient (CLI) | payer MEDICARE, OTHER, SELFPAY ==
[2021-08-02 10:45] VITALS: BMI 24.4
--- NOTE | 2025-04-28 | DI.US.S_ITS ---
PROCEDURE: US ABDOMEN LIMITED INDICATIONS: ASCITES CHECK FOR PARACENTESIS TECHNIQUE: Real-time focused scanning was performed of the abdominal ascites, with image documentation. COMPARISON: [facility], , US ABDOMEN LIMITED, 02/17/2025, 8:13. FINDINGS: Small volume of ascites. Insufficient for safe paracentesis. IMPRESSION: Small volume of ascites is insufficient for safe paracentesis. Paracentesis was canceled. Dictated by: Anant Chicas M.D. on 04/28/2025 at 14:57 Approved by: Anant Chicas M.D. on 04/28/2025 at 14:59
--- NOTE | 2025-04-28 | DI.RAD.S_ITS ---
PROCEDURE: XR CHEST 1V INDICATIONS: POST THORA TECHNIQUE: One view of the chest was acquired. COMPARISON: [facility], CT, CT CHEST ABDOMEN PELVIS WITH CONTRAST, 03/30/2025, 10:35. [facility], CR, XR CHEST 1V, 02/01/2025, 10:26. FINDINGS: Surgical changes and devices: Left-sided port with the catheter tip at the cavoatrial junction. Lungs and pleura: No pneumothorax post right-sided thoracentesis. Moderate right-sided pleural effusion, decreased. Right basilar opacity. No left-sided pleural effusion. Mediastinum: Mediastinal contours appear unchanged. Hiatal hernia. Heart size is normal. Bones and chest wall: No suspicious bony lesions. Overlying soft tissues appear unremarkable. Calcification in the left upper lobe, unchanged. Possibly a calcified granuloma. IMPRESSION: No pneumothorax post right-sided thoracentesis. Dictated by: Anant Chicas M.D. on 04/28/2025 at 12:25 Approved by: Anant Chicas M.D. on 04/28/2025 at 12:27
--- NOTE | 2025-04-28 09:26 | DI.US.S_ITS ---
PROCEDURE: US THORACENTESIS THERAPUTIC INDICATIONS: RIGHT PLEURAL EFFUSION TECHNIQUE: The indications, alternatives, benefits, risks, and complications of the procedure were explained to the patient. Written informed consent was obtained and placed in the chart. The chest was examined sonographically, and an appropriate site was chosen for thoracentesis. The skin was prepared and draped in the usual sterile fashion, and 1% lidocaine was infiltrated from the skin down through the pleural surface. A 19- gauge catheter-covered needle was then introduced into the pleural space, the catheter was advanced and the needle was withdrawn, and thereafter pleural fluid was aspirated. The catheter was then removed and a dressing was applied. COMPARISON: [facility], , XR CHEST 1V, 04/28/2025, 10:42. [facility], , US THORACENTESIS THERAPUTIC, 02/01/2025, 8:41. FINDINGS: Access site: Right hemithorax. Needle: One-Step centesis catheter with introducer needle. Fluid volume and description: 3000 cc, red blood tinged Fluid sent for diagnostic testing: None. Medications: 1% lidocaine for local anaesthesia. Complications: None; post-procedural chest radiograph is negative for pneumothorax. IMPRESSION: Successful ultrasound-guided right thoracentesis. 3 L removed. Dictated by: Anant Chicas M.D. on 04/28/2025 at 14:59 Approved by: Anant Chicas M.D. on 04/28/2025 at 15:00
[2025-04-28 09:46] VITALS: BP 152/77; PULSE 91; RESP 16; TEMP 37.4; O2SAT 99
[2025-04-28 10:32] VITALS: PULSE 93; RESP 22; O2SAT 97
[2025-04-28 10:40] VITALS: PULSE 88; RESP 18; O2SAT 96
[2025-04-28 10:44] VITALS: BP 155/73; PULSE 88; RESP 20; O2SAT 98
[2025-04-28 10:57] VITALS: PULSE 90; RESP 16; O2SAT 100
[2025-04-28 11:11] VITALS: BP 137/73; PULSE 80; RESP 20; O2SAT 98
== END 2025-04-28 11:11 | disposition home or self-care (01) ==
LOC: US 09:25
PROVIDERS: PCP Family Medicine; Referring Provider Family Medicine; Visit Provider Family Medicine
DX: C56.3 Malignant neoplasm of bilateral ovaries (principal); J90 Pleural effusion, not elsewhere classified; R18.8 Other ascites; K44.9 Diaphragmatic hernia without obstruction or gangrene; Z92.21 Personal history of antineoplastic chemotherapy
CPT/HCPCS: 32555; 71045; 76705

== ENCOUNTER → 2025-05-14 11:01 | Outpatient (CLI) | payer MEDICARE, OTHER, SELFPAY ==
[2021-08-02 10:45] VITALS: BMI 24.4
[2025-05-14 12:45] LABS: INR 1.3 (0.9-1.3); Prothrombin Time 14.8 SECONDS (9.4-12.5)
== END ==
PROVIDERS: PCP Family Medicine; Referring Provider Family Medicine; Visit Provider Family Medicine
DX: Z01.812 Encounter for preprocedural laboratory examination (principal); R18.8 Other ascites; C56.2 Malignant neoplasm of left ovary
CPT/HCPCS: 36415; 85610

== ENCOUNTER 2025-05-17 10:10 | Outpatient (CLI) | payer MEDICARE, OTHER, SELFPAY ==
[2021-08-02 10:45] VITALS: BMI 24.4
--- NOTE | 2025-05-17 | PATH_ITS ---
Note [facility] Accession Number: [id number] TESTS RESULT FLAG UNITS REF RANGE LAB Clinician Provided Cytology Information No. of containers..01 Other (Miscellaneous) Source: [A] 01 ABDOMINAL FLUID DIAGNOSIS: [A] 01 ABDOMINAL FLUID, PARACENTESIS. POSITIVE FOR MALIGNANCY. RARE GROUPS OF MARKEDLY ATYPICAL EPITHELIOID CELLS ARE PRESENT. 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 THIS INTERPRETATION INCLUDES EVALUATION OF A CELL BLOCK. Pathologist ICD10: R18.0 Signed out by: Aneta Funk MD, Pathologist NPI- [id number] Performed by: Cam Tang, Sheetrock Applicator ([facility]) Gross description: 55 CC, YELLOW, HAZY RECEIVED: FRESH IN BLUE CAP CONTAINER.VO /VDU 05/18/2025 0951 Local FLAG LEGEND: L-Low Normal,H-High Normal,LL-Alert Low,HH-Alert High <-Panic Low,>-Panic High,A-Abnormal,AA-Critical Abnormal Performed at: 01 =[address] [facility] [facility], [place] [address] Musa Dumont MD, Performed at: [address] [address], [place], [place] [id number] MD Musa Dumont MD Phone: [phone]
--- NOTE | 2025-05-17 10:13 | DI.US.S_ITS ---
PROCEDURE: US PARACENTESIS INDICATIONS: ASCITES TECHNIQUE: The indications, alternatives, benefits, risks, and complications of the procedure were explained to the patient. Written informed consent was obtained and placed in the chart. The abdomen and pelvis were examined sonographically, and an appropriate site was chosen for paracentesis. The skin was prepared and draped in the usual sterile fashion, and 1% lidocaine was infiltrated from the skin down through the peritoneal surface. A 19-gauge catheter-covered needle was then introduced into the peritoneal space, the catheter was advanced and the needle was withdrawn, and thereafter peritoneal fluid was withdrawn. The catheter was then removed and a dressing was applied. The fluid was discarded if the clinician did not order diagnostic testing of the fluid. COMPARISON: [facility], , PARACENTESIS, 03/31/2025, 8:29. FINDINGS: Access site: Right lower quadrant Needle: One-Step centesis catheter with introducer needle. Fluid volume and description: 3.7 L, clear/yellow Fluid sent for diagnostic testing: Yes Medications: 1% lidocaine for local anaesthesia. Complications: None. IMPRESSION: Successful ultrasound-guided paracentesis. Dictated by: Catrachito Anders M.D. on 05/17/2025 at 13:55 Approved by: Catrachito Anders M.D. on 05/17/2025 at 13:59
[2025-05-17 10:25] VITALS: BP 169/77; PULSE 96; RESP 18; TEMP 36.8; O2SAT 98
[2025-05-17 10:40] VITALS: BP 158/77; PULSE 82; RESP 18; O2SAT 97
[2025-05-17 11:49] VITALS: BP 136/77; PULSE 77; RESP 16; O2SAT 99
--- NOTE | 2025-06-02 08:33 | PC.NURSE ---
Late entry for albumin charges. Charges were marked for 0 hours, but 50grams were given by Eve Bowers on 05/17/25. Infusion charges of 2 hours entered by this nurse today.
== END 2025-05-17 11:55 | disposition home or self-care (01) ==
PROVIDERS: PCP Family Medicine; Referring Provider Family Medicine; Visit Provider Family Medicine
DX: C56.3 Malignant neoplasm of bilateral ovaries (principal); R18.8 Other ascites; Z92.21 Personal history of antineoplastic chemotherapy
CPT/HCPCS: 49083; 96365; 96366; P9041

== ENCOUNTER 2025-06-12 09:31 | Emergency (ER) | payer MEDICARE, OTHER, SELFPAY ==
[2021-08-02 10:45] VITALS: BMI 24.4
[2025-06-12 09:32] VITALS: BP 169/84; PULSE 90; RESP 17; TEMP 36.6; O2SAT 98; BMI 24.3
--- NOTE | 2025-06-12 10:13 | ED.SOB ---
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 She has recurrent ascites. Sounds as though she is failing treatment. She just had a paracentesis done04/21/25 for 4.3 L of fluid was drained. feels a bit uncomfortable. She is followed at [facility] for chemotherapy. Related Data Home Medications ?Medication ?Instructions ?Recorded ?Confirmed multivitamin 1 tab PO DAILY 05/21/18 03/09/25 vitamin B complex [B 1 tab PO DAILY 05/15/22 03/09/25 Complex-Vitamin B12] ascorbate calcium (vitamin C) 1 tab PO DAILY 05/15/23 03/09/25 d-mannose 1 tab PO BID 05/15/23 03/09/25 magnesium chloride 1 tab PO DAILY 05/15/23 03/09/25 omeprazole 20 mg capsule,delayed 20 mg PO DAILY 05/15/23 03/09/25 release apixaban 2.5 mg tablet (Eliquis) mg PO 01/04/25 03/09/25 duloxetine 30 mg capsule,delayed mg PO 01/04/25 03/09/25 release sodium chloride 1,000 mg soluble mg PO DAILY 01/04/25 03/09/25 tablet furosemide 40 mg tablet 40 mg PO BID 03/09/25 03/09/25 Previous Rx's ?Medication ?Instructions ?Recorded apixaban 5 mg (74 tabs) tablets in See Rx Instructions PO .COMPLEX 01/16/24 a dose pack (Eliquis DVT-PE Treat #74 ea 30D Start) metoprolol succinate 25 mg 25 mg PO DAILY #90 tabs 09/25/24 tablet,extended release 24 hr Held on 11/11/24. Instructions: Home Medication placed on hold at Doctor's office chlorthalidone 25 mg tablet 25 mg PO DAILY #90 tabs 12/28/24 furosemide 20 mg tablet 20 mg PO DAILY #90 tabs 01/04/25 Allergies Allergy/AdvReac Type Severity Reaction Status Date / Time Calcium Channel Blocking Allergy Severe left side Verified 06/12/25 09:43 Agent Dilt (CALCIUM CHANNEL of face, BLOCKING AGENT DILT) removes calcium out of bones pravastatin Allergy Severe BACK AND Verified 06/12/25 09:43 RIB SPASMS midazolam (From VERSED) Allergy Mild penitentiary Verified 06/12/25 09:43 memory loss codeine (CODEINE) AdvReac Severe HALLUCINATI Verified 06/12/25 09:43 ONS diphenhydramine (From AdvReac Severe I'M Verified 06/12/25 09:43 BENADRYL) KNOCKED OUT FOR DAYS epinephrine (EPINEPHRINE) AdvReac Severe TREMORS, Verified 06/12/25 09:43 TACHYCARDIA ezetimibe AdvReac Severe back pain, Verified 06/12/25 09:43 dizziness Review of Systems Review of Systems ROS Unobtainable: All systems reviewed & are unremarkable except as noted in HPI and below Patient History Medical History (Updated 06/12/25 @ 10:12 by Del Herzog MD) Incomplete emptying of bladder Intermittent diarrhea Pelvic organ prolapse quantification stage 2 cystocele Pyelonephritis History of pyelonephritis Postmenopause atrophic vaginitis Ovarian cancer on left Recurrent urinary tract infection Cystocele Prolapse of female pelvic organs Osteoarthritis Osteopenia (2014) Chicken pox Congenital cataract Surgical History History of hysterectomy with bilateral oophorectomy History of gynecologic surgery (~10/05/19) Anesthesia History of bilateral tubal ligation Status post appendectomy (~1964) History of tonsillectomy (~1960) History of cataract removal with insertion of prosthetic lens (2016) History of knee replacement (10/02/16) History of knee replacement (11/22/15) S/P total knee arthroplasty Family History Father Heart disease High cholesterol Grandmother Age: 75 Heart disease Diabetes mellitus Brother Mental health problem Suicide Brother Diabetes mellitus Mother Pancreatic cancer Social History marital status: number of children: 2 household members: spouse lives independently: Yes caregiver/support person: No housing: house pets and animals: Yes education level: college marisa/synagogue: [employer] other: gardening,quilting,chickens seatbelt use: always water heater temp set < 120 deg: Yes working smoke detector in home: Yes fire extinguisher in home: Yes carbon monox detector in home: Yes firearms in home: No second hand exposure: No alcohol intake: never substance use type: does not use during the past year weight has: remained stable well-balanced diet: daily or most days daily servings fruits/ve-4 caffeine: No eating out: rarely or never Type(s) of exercise: walking frequency: daily duration: 60-90 minutes/day Smoking Status: Unknown if ever smoked alcohol intake frequency: other Exam Narrative Exam Narrative: General: Patient appears to be in no acute distress, acting appropriately Head: normocephalic, atraumatic, HEENT: Pupils equal round reactive, eyes tracking well, neck supple, no JVD Heart: regular rate and rhythm, no murmurs, rubs, or gallops heard Lungs: clear to auscultation, no adventitious sounds Abdomen: soft , nontender, nondistended, positive bowel sounds Neurological: no focal neurological signs, moving all extremities well, alert and oriented x3, Psych: good judgment ,good insight, mood is normal. Initial Vital Signs Initial Vital Signs: Vital Signs Temperature 97.8 F 06/12/25 09:32 Pulse Rate 90 06/12/25 09:32 Respiratory Rate 17 06/12/25 09:32 Blood Pressure 169/84 H 06/12/25 09:32 Pulse Oximetry 98 06/12/25 09:32 Oxygen Delivery Method Room Air 06/12/25 09:32 Course Course Course Narrative: Bedside ultrasound was done for the patient and showed between 1-2 L of pleural fluid in her right lower lobe area. Vital Signs Vital signs: Vital Signs - 8 hr 06/12/25 09:32 Temperature 97.8 F Pulse Rate 90 Respiratory Rate 17 Blood Pressure 169/84 H Pulse Oximetry 98 Oxygen Delivery Method Room Air MDM - SOB/Dyspnea Differential Diagnosis Differential diagnosis: Likely congestive heart failure, community acquired pneumonia and other (pleural fluid) MDM Narrative Medical decision making narrative: Decision was made to hold off on a thoracentesis for now. Patient was shown to have 1-2 L of fluid and wanted to hold off on a thoracentesis at this time. Advised that she can come back if she is having more shortness of breath and to continue with her follow-up paracentesis appointment as planned. Discharge Plan Departure Patient Disposition: Home Clinical Impression: Pleural effusion Instructions: DI for Pleural Effusion Activity Restrictions/Additional Instructions: f/up for paracentesis appointment as planned, f/up sooner in er if having more sob , new symptoms Prescriptions: No Action sodium chloride 1,000 mg tablet,soluble PO DAILY Eliquis 2.5 mg tablet PO duloxetine 30 mg capsule,delayed release(DR/EC) PO furosemide 20 mg tablet 20 mg PO DAILY Qty: 90 3RF furosemide 40 mg tablet 40 mg PO BID metoprolol succinate 25 mg tablet extended release 24 hr 25 mg PO DAILY Qty: 90 0RF chlorthalidone 25 mg tablet 25 mg PO DAILY Qty: 90 0RF multivitamin tablet 1 tab PO DAILY Eliquis DVT-PE Treat 30D Start 5 mg (74 tabs) tablets,dose pack See Rx Instructions .ROUTE .COMPLEX Qty: 74 0RF Rx Instructions: orally per package directions vitamin B complex [B Complex-Vitamin B12] 1 tab PO DAILY ascorbate calcium (vitamin C) 1 tab PO DAILY d-mannose 1 tab PO BID magnesium chloride 1 tab PO DAILY omeprazole 20 mg capsule,delayed release(DR/EC) 20 mg PO DAILY Referrals: Olya Solares MD [Primary Care Provider, Family Practice] Stand Alone Forms: Patient Portal/API
== END 2025-06-12 10:18 | disposition home or self-care (01) ==
PROVIDERS: Emergency Provider Family Medicine; PCP Family Medicine
DX: J90 Pleural effusion, not elsewhere classified (principal); C56.2 Malignant neoplasm of left ovary
CPT/HCPCS: 99281

== ENCOUNTER 2025-07-05 08:03 | Outpatient (CLI) | payer MEDICARE, OTHER, SELFPAY ==
[2021-08-02 10:45] VITALS: BMI 24.4
--- NOTE | 2025-07-05 08:04 | DI.US.S_ITS ---
PROCEDURE: US PARACENTESIS INDICATIONS: PRN ascitis s/p chemo TECHNIQUE: The indications, alternatives, benefits, risks, and complications of the procedure were explained to the patient. Written informed consent was obtained and placed in the chart. The abdomen and pelvis were examined sonographically, and an appropriate site was chosen for paracentesis. The skin was prepared and draped in the usual sterile fashion, and 1% lidocaine was infiltrated from the skin down through the peritoneal surface. A 19-gauge catheter-covered needle was then introduced into the peritoneal space, the catheter was advanced and the needle was withdrawn, and thereafter peritoneal fluid was withdrawn. The catheter was then removed and a dressing was applied. The fluid was discarded if the clinician did not order diagnostic testing of the fluid. COMPARISON: [facility], PARACENTESIS, 05/17/2025, 11:00. [facility], PARACENTESIS, 03/31/2025, 8:29. FINDINGS: Access site: Right lower quadrant Needle: One-Step centesis catheter with introducer needle. Fluid volume and description: 2.8 L clear yellow fluid Fluid sent for diagnostic testing: Not requested Medications: 1% lidocaine for local anaesthesia. Complications: None. IMPRESSION: Successful ultrasound-guided paracentesis. Approved by: Jacob Brasher M.D. on 07/05/2025 at 13:03
[2025-07-05 08:34] VITALS: BP 141/68; PULSE 76; RESP 17; O2SAT 99
[2025-07-05 09:35] VITALS: BP 134/63; PULSE 77; RESP 17; O2SAT 99
== END 2025-07-05 09:50 | disposition home or self-care (01) ==
LOC: US 08:04
PROVIDERS: PCP Family Medicine; Referring Provider Family Medicine; Visit Provider Family Medicine
DX: R18.8 Other ascites (principal); Z92.21 Personal history of antineoplastic chemotherapy
CPT/HCPCS: 49083

== ENCOUNTER 2025-07-30 08:00 | Outpatient (CLI) | payer MEDICARE, OTHER, SELFPAY ==
[2021-08-02 10:45] VITALS: BMI 24.4
--- NOTE | 2025-07-30 08:01 | DI.US.S_ITS ---
PROCEDURE: US PARACENTESIS INDICATIONS: ascites TECHNIQUE: The indications, alternatives, benefits, risks, and complications of the procedure were explained to the patient. Written informed consent was obtained and placed in the chart. The abdomen and pelvis were examined sonographically, and an appropriate site was chosen for paracentesis. The skin was prepared and draped in the usual sterile fashion, and 1% lidocaine was infiltrated from the skin down through the peritoneal surface. A 19-gauge catheter-covered needle was then introduced into the peritoneal space, the catheter was advanced and the needle was withdrawn, and thereafter peritoneal fluid was withdrawn. The catheter was then removed and a dressing was applied. The fluid was discarded if the clinician did not order diagnostic testing of the fluid. COMPARISON: [facility], PARACENTESIS, 07/05/2025, 8:48. FINDINGS: Access site: Right lower quadrant Needle: One-Step centesis catheter with introducer needle. Fluid volume and description: 4.5 L of clear peritoneal fluid. Fluid sent for diagnostic testing: Therapeutic drainage. Medications: 1% lidocaine for local anaesthesia. Complications: None. IMPRESSION: Successful ultrasound-guided paracentesis. Dictated by: Eleuterio Scott Holly Interpreted: Titi Larkin MD on 07/30/2025 at 15:40 Transcribed by: YESENIA on 07/30/2025 at 15:41 Approved by: Titi Larkin M.D. on 08/05/2025 at 7:58
[2025-07-30 08:30] VITALS: BP 133/65; PULSE 75; RESP 12; TEMP 36.4; O2SAT 97
[2025-07-30 09:50] VITALS: BP 121/60; PULSE 70; RESP 18; O2SAT 99
== END 2025-07-30 09:55 | disposition home or self-care (01) ==
LOC: US 08:01
PROVIDERS: PCP Family Medicine; Referring Provider Family Medicine; Visit Provider Family Medicine
DX: R18.8 Other ascites (principal); Z92.21 Personal history of antineoplastic chemotherapy
CPT/HCPCS: 49083